=== PATIENT | female | born 1960 | race Caucasian/White ===

== ENCOUNTER 2017-12-27 15:14 | Observation (INO) | payer MEDICAID ==
[~2017-12-27] VITALS: Ht 167.6 cm; Wt 85.0 kg
[~2017-12-27 15:14] MED LIST: ALBU18HF2 PO; ASPI81TA PO; ATOR20TA PO; CARV3.12 PO; CLON-286 PO; DOCU250C86 PO; ISOS40TA14 PO; METH5TAB2 PO; PANT-47 PO; PROM25TA14 PO; QUET-1 PO; TIOT4MIS3 INH
[2017-12-27 15:41] LABS: BASOPHILS % (AUTO) 0.5 % (0-1); EOSINOPHILS # (AUTO) 0.1 X10'3 (0-0.9); EOSINOPHILS % (AUTO) 1.1 % (0-6); HEMATOCRIT 40.5 % (35.0-45.0); LYMPHOCYTES # (AUTO) 2.4 X10'3 (1.1-4.8); LYMPHOCYTES % (AUTO) 30.7 % (21-51); MEAN CORPUSCULAR HEMOGLOBIN 31.4 PG (27.0-31.0); MEAN CORPUSCULAR HGB CONC 34.6 % (33.0-36.5); MEAN CORPUSCULAR VOLUME 90.9 FL (78-98); MEAN PLATELET VOLUME 7.4 FL (7.4-10.4); MONOCYTES # (AUTO) 0.3 X10'3 (0-0.9); MONOCYTES % (AUTO) 4.3 % (2-12); NEUTROPHILS # (AUTO) 4.9 X10'3 (1.8-7.7); NEUTROPHILS % (AUTO) 63.4 % (42-75); PLATELET COUNT 229 X10'3 (140-440); RED BLOOD COUNT 4.46 X10'6 (4.20-5.60); RED CELL DISTRIBUTION WIDTH 13.9 % (11.5-14.5); WHITE BLOOD COUNT 7.8 X10'3 (4.5-11.0)
[2017-12-27 15:42] LABS: INR 0.9 INR; PARTIAL THROMBOPLASTIN TIME 26 SECONDS (22-32); PROTHROMBIN TIME 9.6 SECONDS (9.0-12.0)
[2017-12-27 15:49] LABS: ALANINE AMINOTRANSFERASE 17 U/L (12-78); ALBUMIN 3.8 G/DL (3.4-5.0); ALBUMIN/GLOBULIN RATIO 0.9 (1.1-1.5); ALKALINE PHOSPHATASE 95 IU/L (46-116); ANION GAP 5 (8-16); ASPARTATE AMINO TRANSFERASE 15 U/L (10-37); BILIRUBIN,TOTAL 0.3 MG/DL (0.1-1.0); BLOOD UREA NITROGEN 11 MG/DL (7-18); CHLORIDE 101 MMOL/L (99-107); GLUCOSE 130 MG/DL (70-104); POTASSIUM 3.7 MMOL/L (3.5-5.1); SODIUM 139 MMOL/L (135-145); TOTAL CARBON DIOXIDE 32.7 MMOL/L (24-32); TOTAL PROTEIN 7.9 G/DL (6.4-8.2); eGFR 58 ML/MIN
[2017-12-27] MEDS ORDERED: nitroGLYCERIN 0.4mg SUBLingual tab SL PRN ×3 (18:15→21:35)
[2017-12-27] MEDS ORDERED: aspirin 81mg tab.chew PO ONE (18:15)
[2017-12-27] MEDS ORDERED: ondansetron/PF 4mg/2ml inj IV ONE (18:55)
[2017-12-27] MEDS ORDERED: morphine 4 MG/ML inj SYRINge IV ONE (18:55)
[2017-12-27] MEDS ORDERED: ASPI81TA46 PO (20:22)
[2017-12-27] MEDS ORDERED: HYDR-3972 PO (20:22)
[2017-12-27] MEDS ORDERED: ATOR20TA66 PO (20:22)
[2017-12-27] MEDS ORDERED: ALBU18HF2 PO (20:22)
[2017-12-27] MEDS ORDERED: QUET200T30 PO (20:22)
[2017-12-27] MEDS ORDERED: CLON1TAB4 PO (20:22)
[2017-12-27] MEDS ORDERED: PANT40TA4 PO (20:22)
[2017-12-27] MEDS ORDERED: acetaminophen 325mg tablet PO PRN (20:45)
[2017-12-27] MEDS ORDERED: potassium Cl 20 mEq SR tablet PO PRN ×2 (20:45)
[2017-12-27] MEDS ORDERED: magnesium hydroxide 30ml (MOM) UD suspension PO PRN (20:45)
[2017-12-27] MEDS ORDERED: ondansetron/PF 4mg/2ml inj IV PRN (20:45)
[2017-12-27] MEDS ORDERED: potassium Cl 40MEQ/NS 500ml 500 ML IV PRN ×2 (20:45)
[2017-12-27] MEDS ORDERED: non-formulary drug (Quetiapine Fumarate 1 TAB) PO SCH (21:00)
[2017-12-27] MEDS: ISOSORBIDE DINITRATE 40 MG PO SCH (21:00)
[2017-12-27] MEDS ORDERED: ISOSORBIDE DINITRATE PO SCH (21:00)
[2017-12-27] MEDS: quetiapine 100mg tablet PO SCH (21:28)
[2017-12-27] MEDS: atorvastatin 20mg tablet PO SCH (21:28)
[2017-12-27] MEDS: HYDROcodone/acetaminophen 10/325mg tab PO SCH (21:28)
[2017-12-27] MEDS: clonazePAM 1mg tablet PO SCH (21:28)
[2017-12-27] MEDS ORDERED: regadenoson 0.4mg/5ml syringe IV PRN (21:35)
[2017-12-27] MEDS ORDERED: aminophylline 250mg/10ml inj. IV PRN (21:35)
[2017-12-27] MEDS ORDERED: metoprolol tartrate 1mg/ml inj IV PRN (21:35)
[2017-12-27] MEDS: methadone 5mg tablet PO SCH (21:55)
[2017-12-27] MEDS ORDERED: LORazepam 2 mg/ml vial IV PRN (23:20)
[2017-12-28] VITALS (9 sets, daily range): BP systolic 90–114; BP diastolic 53–64
[2017-12-28 03:15] LABS: BASOPHILS % (AUTO) 0 % (0-1); EOSINOPHILS # (AUTO) 0.1 X10'3 (0-0.9); EOSINOPHILS % (AUTO) 1.6 % (0-6); HEMATOCRIT 37.9 % (35.0-45.0); HEMOGLOBIN 13.1 g/dl (12.0-16.0); LYMPHOCYTES # (AUTO) 2.6 X10'3 (1.1-4.8); MEAN CORPUSCULAR HEMOGLOBIN 31.4 PG (27.0-31.0); MEAN CORPUSCULAR HGB CONC 34.5 % (33.0-36.5); MEAN PLATELET VOLUME 7.2 FL (7.4-10.4); MONOCYTES # (AUTO) 0.5 X10'3 (0-0.9); MONOCYTES % (AUTO) 6.6 % (2-12); NEUTROPHILS # (AUTO) 3.8 X10'3 (1.8-7.7); NEUTROPHILS % (AUTO) 54.8 % (42-75); PLATELET COUNT 203 X10'3 (140-440); RED BLOOD COUNT 4.16 X10'6 (4.20-5.60); RED CELL DISTRIBUTION WIDTH 13.6 % (11.5-14.5); WHITE BLOOD COUNT 6.9 X10'3 (4.5-11.0)
[2017-12-28 03:35] LABS: ALBUMIN 3.4 G/DL (3.4-5.0); ANION GAP 7 (8-16); BLOOD UREA NITROGEN 11 MG/DL (7-18); CALCIUM 8.7 MG/DL (8.5-10.1); CHLORIDE 104 MMOL/L (99-107); GLUCOSE 117 MG/DL (70-104); POTASSIUM 3.8 MMOL/L (3.5-5.1); SODIUM 141 MMOL/L (135-145); TOTAL CARBON DIOXIDE 29.7 MMOL/L (24-32); eGFR 58 ML/MIN
[2017-12-28] MEDS: carVEDilol 3.125mg tablet PO SCH ×2 (07:37→20:22)
[2017-12-28] MEDS: aspirin 81mg tablet.DR PO SCH (07:38)
[2017-12-28] MEDS: methadone 5mg tablet PO SCH ×3 (07:38→20:21)
[2017-12-28] MEDS: clonazePAM 1mg tablet PO SCH ×3 (07:38→20:22)
[2017-12-28] MEDS: pantoprazole 40mg Tablet.DR PO SCH (07:39)
[2017-12-28] MEDS: HYDROcodone/acetaminophen 10/325mg tab PO SCH ×3 (07:39→23:19)
[2017-12-28] MEDS: K and/or MAG REPLACEMENT MC SCH (07:41)
[2017-12-28] MEDS ORDERED: non-formulary drug (Aspirin (Aspirin Ec) 1 TAB) PO SCH (08:00)
[2017-12-28] MEDS ORDERED: regadenoson 0.4mg/5ml syringe IV ONE (08:37)
[2017-12-28] MEDS ORDERED: aminophylline inj. 0 ML IV ONE (08:37)
[2017-12-28] MEDS: budesonide 0.5mg/2ml UD nebule IH SCH ×2 (09:25→20:00)
[2017-12-28] MEDS: atorvastatin 20mg tablet PO SCH (20:20)
[2017-12-28] MEDS: quetiapine 100mg tablet PO SCH (20:21)
[2017-12-28] MEDS: ISOSORBIDE DINITRATE 40 MG PO SCH (21:00)
[2017-12-29] VITALS: BP 97/62
[2017-12-29] MEDS: mag hydrox/Alum hydrox/simeth 30ml oral suspension PO PRN (04:22)
[2017-12-29] MEDS: morphine 4 MG/ML inj SYRINge IV PRN ×2 (04:51→11:47)
[2017-12-29] MEDS ORDERED: normal saline 500ml IV soln 500 ML IV ONE ×2 (05:05→23:35)
[2017-12-29] MEDS ORDERED: morphine 4 MG/ML inj SYRINge IV ONE (05:05)
[2017-12-29] MEDS ORDERED: normal saline 500ml IV soln 1,000 ML IV ONE (05:15)
[2017-12-29 06:06] LABS: BASOPHILS % (AUTO) 0.1 % (0-1); EOSINOPHILS # (AUTO) 0.1 X10'3 (0-0.9); EOSINOPHILS % (AUTO) 1.7 % (0-6); HEMATOCRIT 37.6 % (35.0-45.0); LYMPHOCYTES # (AUTO) 2.7 X10'3 (1.1-4.8); MEAN CORPUSCULAR HEMOGLOBIN 31.4 PG (27.0-31.0); MEAN CORPUSCULAR HGB CONC 34.6 % (33.0-36.5); MEAN CORPUSCULAR VOLUME 90.7 FL (78-98); MEAN PLATELET VOLUME 7.6 FL (7.4-10.4); MONOCYTES # (AUTO) 0.4 X10'3 (0-0.9); MONOCYTES % (AUTO) 4.8 % (2-12); NEUTROPHILS # (AUTO) 5.6 X10'3 (1.8-7.7); NEUTROPHILS % (AUTO) 63.4 % (42-75); PLATELET COUNT 211 X10'3 (140-440); RED BLOOD COUNT 4.15 X10'6 (4.20-5.60); RED CELL DISTRIBUTION WIDTH 13.7 % (11.5-14.5); WHITE BLOOD COUNT 8.9 X10'3 (4.5-11.0)
[2017-12-29 06:30] LABS: ALBUMIN 3.3 G/DL (3.4-5.0); ANION GAP 8 (8-16); BLOOD UREA NITROGEN 11 MG/DL (7-18); BUN/CREATININE RATIO 9.5 (6.6-38.0); CALCIUM 8.9 MG/DL (8.5-10.1); CHLORIDE 103 MMOL/L (99-107); CREATININE 1.16 MG/DL (0.40-0.90); GLUCOSE 124 MG/DL (70-104); POTASSIUM 3.8 MMOL/L (3.5-5.1); SODIUM 142 MMOL/L (135-145); TOTAL CARBON DIOXIDE 31.1 MMOL/L (24-32); eGFR 49 ML/MIN
[2017-12-29 07:00] VITALS: BP 104/56
[2017-12-29 07:56] VITALS: BP 111/66
[2017-12-29] MEDS: K and/or MAG REPLACEMENT MC SCH (08:00)
[2017-12-29] MEDS: methadone 5mg tablet PO SCH ×3 (08:30→20:54)
[2017-12-29] MEDS: carVEDilol 3.125mg tablet PO SCH ×2 (08:31→19:33)
[2017-12-29] MEDS: HYDROcodone/acetaminophen 10/325mg tab PO SCH ×3 (08:31→20:54)
[2017-12-29] MEDS: aspirin 81mg tablet.DR PO SCH (08:32)
[2017-12-29] MEDS: clonazePAM 1mg tablet PO SCH ×3 (08:32→20:54)
[2017-12-29] MEDS: pantoprazole 40mg Tablet.DR PO SCH (08:32)
[2017-12-29] MEDS: budesonide 0.5mg/2ml UD nebule IH SCH ×2 (08:39→19:48)
[2017-12-29] MEDS: ipratropium/albuterol 3ml nebule NEB PRN ×2 (08:39→19:48)
[2017-12-29 11:00] VITALS: BP 95/56
[2017-12-29 18:00] VITALS: BP 101/63
[2017-12-29] MEDS ORDERED: nicotine 21mg patch - 24 hr TD SCH (20:20)
[2017-12-29] MEDS: atorvastatin 20mg tablet PO SCH (20:53)
[2017-12-29] MEDS: quetiapine 100mg tablet PO SCH (20:54)
[2017-12-29] MEDS: ISOSORBIDE DINITRATE 40 MG PO SCH (21:00)
[2017-12-30] VITALS: BP 83/49
[2017-12-30 00:34] VITALS: BP 92/54
[2017-12-30 04:30] VITALS: BP 94/48
[2017-12-30 05:33] LABS: BASOPHILS % (AUTO) 0.1 % (0-1); EOSINOPHILS # (AUTO) 0.1 X10'3 (0-0.9); HEMATOCRIT 35.2 % (35.0-45.0); HEMOGLOBIN 12.3 g/dl (12.0-16.0); LYMPHOCYTES % (AUTO) 40.3 % (21-51); MEAN CORPUSCULAR HEMOGLOBIN 31.4 PG (27.0-31.0); MEAN CORPUSCULAR HGB CONC 34.8 % (33.0-36.5); MEAN CORPUSCULAR VOLUME 90.2 FL (78-98); MEAN PLATELET VOLUME 7.4 FL (7.4-10.4); MONOCYTES # (AUTO) 0.5 X10'3 (0-0.9); MONOCYTES % (AUTO) 6.6 % (2-12); NEUTROPHILS # (AUTO) 3.7 X10'3 (1.8-7.7); PLATELET COUNT 209 X10'3 (140-440); RED CELL DISTRIBUTION WIDTH 13.8 % (11.5-14.5); WHITE BLOOD COUNT 7.4 X10'3 (4.5-11.0)
[2017-12-30 05:48] LABS: ALBUMIN 3.2 G/DL (3.4-5.0); ANION GAP 7 (8-16); BLOOD UREA NITROGEN 14 MG/DL (7-18); BUN/CREATININE RATIO 12.8 (6.6-38.0); CHLORIDE 102 MMOL/L (99-107); CREATININE 1.09 MG/DL (0.40-0.90); GLUCOSE 98 MG/DL (70-104); POTASSIUM 4.1 MMOL/L (3.5-5.1); SODIUM 139 MMOL/L (135-145); TOTAL CARBON DIOXIDE 29.8 MMOL/L (24-32); eGFR 52 ML/MIN
[2017-12-30 08:00] VITALS: BP 105/68
[2017-12-30] MEDS: carVEDilol 3.125mg tablet PO SCH (08:00)
[2017-12-30] MEDS: K and/or MAG REPLACEMENT MC SCH (08:00)
[2017-12-30] MEDS: methadone 5mg tablet PO SCH ×2 (08:27→12:37)
[2017-12-30] MEDS: aspirin 81mg tablet.DR PO SCH (08:27)
[2017-12-30] MEDS: clonazePAM 1mg tablet PO SCH ×2 (08:27→12:36)
[2017-12-30] MEDS: pantoprazole 40mg Tablet.DR PO SCH (08:27)
[2017-12-30] MEDS: HYDROcodone/acetaminophen 10/325mg tab PO SCH ×3 (08:28→15:14)
[2017-12-30] MEDS: budesonide 0.5mg/2ml UD nebule IH SCH (08:39)
[2017-12-30] MEDS: ipratropium/albuterol 3ml nebule NEB PRN (08:39)
[2017-12-30 10:00] VITALS: BP 132/74
[2017-12-30] MEDS: mag hydrox/Alum hydrox/simeth 30ml oral suspension PO PRN (10:09)
[2017-12-30] MEDS ORDERED: NITR0.4T51 SL (15:51)
[2017-12-30] MEDS ORDERED: NICO-687 TD (15:51)
[2017-12-30] MEDS ORDERED: NAPR-56 PO (15:54)
== END 2017-12-30 16:45 | disposition home or self-care (01) ==
LOC: ER 15:14 → ED HOLD 20:43 → EDBEDREQ 12-28 17:55 → SUR 3N 12-28 19:05
PROVIDERS: ADMIT Family Medicine; ATTEND Emergency Medicine
DX: R07.89 Other chest pain (principal); I25.10 Atherosclerotic heart disease of native coronary artery without angina pectoris; E78.5 Hyperlipidemia, unspecified; E78.00 Pure hypercholesterolemia, unspecified; J44.9 Chronic obstructive pulmonary disease, unspecified; K21.9 Gastro-esophageal reflux disease without esophagitis; I50.9 Heart failure, unspecified; F41.9 Anxiety disorder, unspecified; F32.9 Major depressive disorder, single episode, unspecified; F17.210 Nicotine dependence, cigarettes, uncomplicated; I25.2 Old myocardial infarction; M54.9 Dorsalgia, unspecified; G89.29 Other chronic pain; Z95.1 Presence of aortocoronary bypass graft; Z90.710 Acquired absence of both cervix and uterus
CPT/HCPCS: 36415; 71045; 78452; 80048; 80053; 84484; 85025; 85610; 85730; 87070; 93005; 93017; 93306; 94640; 94760; 96361; 96374; 96375; 96376; 99285; A9500; G0378; J2060; J2270; J2405; J2785; J7030; J7626; J0280

== ENCOUNTER 2018-02-27 04:58 | Day surgery (SDC) | payer MEDICAID ==
[2018-02-23 10:00] LABS: BASOPHILS # (AUTO) 0.1 X10'3 (0-0.2); BASOPHILS % (AUTO) 1.1 % (0-1); EOSINOPHILS # (AUTO) 0.1 X10'3 (0-0.9); EOSINOPHILS % (AUTO) 1.5 % (0-6); HEMATOCRIT 40.6 % (35.0-45.0); HEMOGLOBIN 14.1 g/dl (12.0-16.0); LYMPHOCYTES # (AUTO) 1.9 X10'3 (1.1-4.8); LYMPHOCYTES % (AUTO) 25.1 % (21-51); MEAN CORPUSCULAR HEMOGLOBIN 31.6 PG (27.0-31.0); MEAN CORPUSCULAR HGB CONC 34.8 % (33.0-36.5); MEAN CORPUSCULAR VOLUME 90.8 FL (78-98); MEAN PLATELET VOLUME 6.9 FL (7.4-10.4); MONOCYTES # (AUTO) 0.4 X10'3 (0-0.9); MONOCYTES % (AUTO) 5.8 % (2-12); NEUTROPHILS # (AUTO) 5.2 X10'3 (1.8-7.7); NEUTROPHILS % (AUTO) 66.5 % (42-75); PLATELET COUNT 225 X10'3 (140-440); RED BLOOD COUNT 4.47 X10'6 (4.20-5.60); RED CELL DISTRIBUTION WIDTH 13.8 % (11.5-14.5); WHITE BLOOD COUNT 7.8 X10'3 (4.5-11.0)
[2018-02-23 10:11] LABS: INR 0.9 INR; PARTIAL THROMBOPLASTIN TIME 26 SECONDS (22-32); PROTHROMBIN TIME 9.5 SECONDS (9.0-12.0)
[2018-02-23 10:15] LABS: ALANINE AMINOTRANSFERASE 15 U/L (12-78); ALBUMIN 3.7 G/DL (3.4-5.0); ALBUMIN/GLOBULIN RATIO 0.9 (1.1-1.5); ALKALINE PHOSPHATASE 97 IU/L (46-116); ANION GAP 7 (8-16); ASPARTATE AMINO TRANSFERASE 14 U/L (10-37); BILIRUBIN,TOTAL 0.4 MG/DL (0.1-1.0); BLOOD UREA NITROGEN 11 MG/DL (7-18); BUN/CREATININE RATIO 10.4 (6.6-38.0); CALCIUM 8.8 MG/DL (8.5-10.1); CHLORIDE 100 MMOL/L (99-107); CHOL/HDL RATIO 5.4 (0.00-4.99); CHOLESTEROL 199 MG/DL (0-200); CREATININE 1.06 MG/DL (0.40-0.90); GLUCOSE 103 MG/DL (70-104); HDL CHOLESTEROL 37 MG/DL (35-60); LDL CHOLESTEROL 131 MG/DL (50-100); POTASSIUM 3.9 MMOL/L (3.5-5.1); SODIUM 139 MMOL/L (135-145); TOTAL CARBON DIOXIDE 32.5 MMOL/L (24-32); TRIGLYCERIDES 212 MG/DL (20-135); eGFR 54 ML/MIN
[2018-02-27] VITALS (11 sets, daily range): BP systolic 90–112; BP diastolic 53–77
[~2018-02-27] VITALS: Ht 167.6 cm; Wt 84.3 kg
[~2018-02-27 04:58] MED LIST changes: -ASPI81TA PO; +ASPI81TA46 PO; -CLON-286 PO; +CLON1TAB12 PO; -DOCU250C86 PO; +HYDR-3972 PO; +NICO-687 TD; +NITR0.4T51 SL; -PANT-47 PO; +PANT40TA4 PO; -QUET-1 PO; +QUET200T30 PO
[2018-02-27] MEDS ORDERED: diphenhydrAMINE 25mg capsule PO ONE (05:20)
[2018-02-27] MEDS ORDERED: LORazepam 0.5 MG tablet PO ONE (05:20)
[2018-02-27] MEDS ORDERED: normal saline 1000ml 1,000 ML IV ONE (05:20)
[2018-02-27] MEDS ORDERED: LIDOcaine 1% 30ml preserv. free vial ONE (06:12)
[2018-02-27] MEDS ORDERED: iohexol 350MG/ML 100ml bottle IV ONE ×2 (06:13→06:43)
[2018-02-27] MEDS ORDERED: QUET-1 PO (06:14)
[2018-02-27] MEDS ORDERED: RANO500T3 PO (06:15)
[2018-02-27] MEDS ORDERED: NITR0.4T51 SL (06:15)
[2018-02-27] MEDS ORDERED: ADV50100 IH (06:18)
[2018-02-27] MEDS ORDERED: TIOT18CA3 INH (06:18)
[2018-02-27] MEDS ORDERED: BUDE10.2 INH (06:18)
[2018-02-27] MEDS ORDERED: midazolam 2 mg/2 ml injection ONE (06:23)
[2018-02-27] MEDS ORDERED: proCHLORperazine 10 MG/2 ml inj ONE (06:23)
[2018-02-27] MEDS ORDERED: fentaNYL/PF 50MCG/1 ML 2ML syringe ONE (06:24)
[2018-02-27] MEDS ORDERED: acetaminophen 325mg tablet PO PRN (08:35)
[2018-02-27] MEDS ORDERED: OXAZEpam 15mg capsule PO PRN (08:35)
[2018-02-27] MEDS ORDERED: HYDROcodone/acetaminophen 5mg/325mg tablet PO PRN (08:35)
[2018-02-27] MEDS ORDERED: ondansetron/PF 4mg/2ml inj IV PRN (08:35)
[2018-02-27] MEDS ORDERED: nitroGLYCERIN 0.4mg SUBLingual tab SL PRN (08:35)
[2018-02-27] MEDS ORDERED: proCHLORperazine 10 MG/2 ml inj IV PRN (08:35)
[2018-02-27] MEDS ORDERED: HYDROcodone/acetaminophen 10/325mg tab PO PRN (08:35)
== END 2018-02-27 11:05 | disposition home or self-care (01) ==
LOC: SSTAY O 04:58
PROVIDERS: ATTEND Internal Medicine Interventional Cardiology
DX: I25.718 Atherosclerosis of autologous vein coronary artery bypass graft(s) with other forms of angina pectoris (principal); E78.5 Hyperlipidemia, unspecified; B19.20 Unspecified viral hepatitis C without hepatic coma; I11.0 Hypertensive heart disease with heart failure; I50.9 Heart failure, unspecified; G89.29 Other chronic pain; F17.210 Nicotine dependence, cigarettes, uncomplicated; J44.9 Chronic obstructive pulmonary disease, unspecified; F41.8 Other specified anxiety disorders; M19.90 Unspecified osteoarthritis, unspecified site; Z88.1 Allergy status to other antibiotic agents; Z91.012 Allergy to eggs; Z88.0 Allergy status to penicillin; Z88.6 Allergy status to analgesic agent; Z87.11 Personal history of peptic ulcer disease; Z90.89 Acquired absence of other organs; Z95.1 Presence of aortocoronary bypass graft; Z90.710 Acquired absence of both cervix and uterus; Z86.14 Personal history of Methicillin resistant Staphylococcus aureus infection; Z86.74 Personal history of sudden cardiac arrest; Z79.82 Long term (current) use of aspirin; Z79.891 Long term (current) use of opiate analgesic; Z88.8 Allergy status to other drugs, medicaments and biological substances; Z98.890 Other specified postprocedural states; Z79.899 Other long term (current) drug therapy
CPT/HCPCS: 36415; 80053; 80061; 85025; 85610; 85730; 93005; 93459; 99152; 99153; A6257; C1769; J0780; J1644; J2250; J3010; J3490; J7030; Q0163; Q9967; A4620

== ENCOUNTER 2018-11-18 18:01 | Emergency (ER) | payer MEDICAID ==
[~2018-11-18] VITALS: Ht 167.6 cm; Wt 84.0 kg
[~2018-11-18 18:01] MED LIST changes: +ADV50100 IH; +BUDE10.2 INH; -CARV3.12 PO; -NICO-687 TD; +QUET-1 PO; -QUET200T30 PO; +RANO500T3 PO; +TIOT18CA3 INH; -TIOT4MIS3 INH
[2018-11-18] MEDS ORDERED: SULF1TAB49 PO (20:00)
[2018-11-18] MEDS ORDERED: CEPH-572 PO (20:00)
[2018-11-18 20:04] VITALS: BP 128/72
[2018-11-18] MEDS ORDERED: PRED20TA PO (20:07)
== END 2018-11-18 20:14 | disposition home or self-care (01) ==
LOC: ER 18:01
DX: L60.1 Onycholysis (principal); G43.909 Migraine, unspecified, not intractable, without status migrainosus; I25.10 Atherosclerotic heart disease of native coronary artery without angina pectoris; I50.9 Heart failure, unspecified; E78.00 Pure hypercholesterolemia, unspecified; I25.2 Old myocardial infarction; J44.9 Chronic obstructive pulmonary disease, unspecified; G89.29 Other chronic pain; Z95.1 Presence of aortocoronary bypass graft; Z98.890 Other specified postprocedural states; Z88.0 Allergy status to penicillin; Z56.0 Unemployment, unspecified; Z88.6 Allergy status to analgesic agent; Z88.1 Allergy status to other antibiotic agents; Z91.012 Allergy to eggs; Z79.82 Long term (current) use of aspirin; Z79.899 Other long term (current) drug therapy
CPT/HCPCS: 99284

== ENCOUNTER 2019-07-24 16:38 | Inpatient (IN) | payer MEDICAID ==
[~2019-07-24] VITALS: Ht 167.6 cm; Wt 84.0 kg
[~2019-07-24 16:38] MED LIST changes: +ASPI81TA44 PO; -ASPI81TA46 PO
[2019-07-24] MEDS ORDERED: nitroGLYCERIN 0.4mg SUBLingual tab SL PRN ×3 (17:10→20:15)
[2019-07-24] MEDS ORDERED: aspirin 81mg tab.chew PO ONE (17:10)
[2019-07-24 17:29] LABS: BASOPHILS # (AUTO) 0.1 X10'3 (0-0.2); BASOPHILS % (AUTO) 0.6 % (0-1); EOSINOPHILS # (AUTO) 0.1 X10'3 (0-0.9); EOSINOPHILS % (AUTO) 0.9 % (0-6); LYMPHOCYTES % (AUTO) 33.2 % (21-51); MEAN CORPUSCULAR HEMOGLOBIN 31.4 PG (27.0-31.0); MEAN CORPUSCULAR HGB CONC 34.9 g/dL (33.0-36.5); MEAN CORPUSCULAR VOLUME 89.8 FL (78-98); MEAN PLATELET VOLUME 6.6 FL (7.4-10.4); MONOCYTES # (AUTO) 0.6 X10'3 (0-0.9); MONOCYTES % (AUTO) 6.3 % (2-12); NEUTROPHILS # (AUTO) 5.3 X10'3 (1.8-7.7); PLATELET COUNT 265 X10'3 (140-440); RED BLOOD COUNT 4.45 X10'6 (4.20-5.60); WHITE BLOOD COUNT 9.1 X10'3 (4.5-11.0)
[2019-07-24] MEDS ORDERED: acetaminophen 325mg tablet PO ONE (17:35)
[2019-07-24 17:45] LABS: ALANINE AMINOTRANSFERASE 15 U/L (12-78); ALBUMIN 3.9 G/DL (3.4-5.0); ALBUMIN/GLOBULIN RATIO 0.9 (1.1-1.5); ALKALINE PHOSPHATASE 91 IU/L (46-116); ANION GAP 6 (8-16); ASPARTATE AMINO TRANSFERASE 13 U/L (10-37); BILIRUBIN,TOTAL 0.3 MG/DL (0.1-1.0); BLOOD UREA NITROGEN 11 MG/DL (7-18); BUN/CREATININE RATIO 11.1 (6.6-38.0); CALCIUM 8.7 MG/DL (8.5-10.1); CHLORIDE 100 MMOL/L (99-107); CREATININE 0.99 MG/DL (0.40-0.90); GLUCOSE 90 MG/DL (70-104); POTASSIUM 3.7 MMOL/L (3.5-5.1); SODIUM 137 MMOL/L (135-145); TOTAL CARBON DIOXIDE 30.7 MMOL/L (24-32); TOTAL PROTEIN 8.4 G/DL (6.4-8.2); eGFR 58 ML/MIN
[2019-07-24] MEDS ORDERED: AMIT25TA9 PO (18:53)
[2019-07-24] MEDS ORDERED: PRAM0.258 PO (18:53)
[2019-07-24] MEDS ORDERED: TIOT4MIS3 INH (18:53)
[2019-07-24] MEDS ORDERED: MORP30TA6 PO (18:53)
[2019-07-24] MEDS ORDERED: morphine 4 MG/ML inj SYRINge IV ONE (19:05)
--- NOTE | 2019-07-24 19:15 | NUR ---
Olga GOVEA UPDATED THAT PT WITH INCREASING PAIN TO HER LEFT BACK AND LEFT CHEST THAT RADIATES TO HER L SHOUDER. REPORTS THE NITRO SHE TOOK EARLIER DID NOT HELP HER PAIN. MED REC COMPLETED AND PT NOW AWAITING HOSPITALIST. OK FOR PT TO EAT PER Olga GOVEA. PT GIVEN SANDWICH, CRACKERS, COFFEE, JUICE AND JELLO. PT IS POLITE AND COOPERATIVE. REPORTS SHE HAS MANY MEDS THAT SHE TAKES AT NIGHT AND SHE HAS NOT HAD THEM. Aura GOVEA UPDATED AND REPROTS HE WILL DEFER HOME MEDS TO HOSPITALIST. HE ORDERED MSIV.
[2019-07-24] MEDS ORDERED: ondansetron/PF 4mg/2ml inj IV PRN (20:10)
[2019-07-24] MEDS ORDERED: HYDROcodone/acetaminophen 10/325mg tab PO PRN (20:10)
[2019-07-24] MEDS ORDERED: morphine 2 MG/ML inj. syringe IV PRN (20:10)
[2019-07-24] MEDS ORDERED: HYDROcodone/acetaminophen 5mg/325mg tablet PO PRN (20:10)
[2019-07-24] MEDS ORDERED: acetaminophen 325mg tablet PO PRN (20:10)
[2019-07-24] MEDS ORDERED: mag hydrox/Alum hydrox/simeth 30ml oral suspension PO PRN (20:10)
[2019-07-24] MEDS ORDERED: magnesium hydroxide 30ml (MOM) UD suspension PO PRN (20:10)
[2019-07-24 20:34] LABS: HEMOGLOBIN A1C 5.9 % (4.5-6.2)
[2019-07-24] MEDS ORDERED: albuterol 2.5 MG/3 ML nebule NEB PRN (20:40)
[2019-07-24] MEDS: HYDROcodone/acetaminophen 10/325mg tab PO SCH (20:58)
[2019-07-24] MEDS ORDERED: pramipexole 0.25mg tablet PO SCH (21:00)
[2019-07-24] MEDS ORDERED: quetiapine 100mg tablet PO SCH (21:00)
[2019-07-24] MEDS ORDERED: clonazePAM 1mg tablet PO ONE (21:45)
[2019-07-24] MEDS ORDERED: amitriptyline 50mg tablet PO SCH (21:47)
[2019-07-24 22:10] VITALS: BP 95/60
--- NOTE | 2019-07-24 22:10 | NUR ---
PATIENT ADMITTED TO ROOM 354A FROM ER FOR CHEST PAIN. PLACED COMFORTABLE IN BED. VITAL SIGNS TAKEN AND RECORDED.
[2019-07-24] MEDS ORDERED: normal saline 1000ml 1,000 ML IV SCH (22:40)
[2019-07-24] MEDS: morphine 2 MG/ML inj. syringe IV PRN (23:11)
[2019-07-25] VITALS (13 sets, daily range): BP systolic 91–116; BP diastolic 53–74
[2019-07-25] MEDS ORDERED: regadenoson 0.4mg/5ml syringe IV PRN (00:30)
[2019-07-25] MEDS ORDERED: aminophylline 250mg/10ml inj. IV PRN (00:30)
[2019-07-25] MEDS ORDERED: metoprolol tartrate 1mg/ml inj IV PRN (00:30)
[2019-07-25] MEDS ORDERED: nitroGLYCERIN 0.4mg SUBLingual tab SL PRN (00:30)
[2019-07-25] MEDS ORDERED: nicotine 21mg patch - 24 hr TD SCH (01:00)
[2019-07-25] MEDS: morphine 2 MG/ML inj. syringe IV PRN ×2 (04:09→08:20)
[2019-07-25 06:06] LABS: CHOLESTEROL 175 MG/DL (0-200); HDL CHOLESTEROL 35 MG/DL (35-60); LDL CHOLESTEROL 126 MG/DL (50-100); TRIGLYCERIDES 145 MG/DL (20-135)
--- NOTE | 2019-07-25 06:30 | NUR ---
Problems reprioritized. Patient report given, questions answered & plan of care reviewed with AVA HARMON.
--- NOTE | 2019-07-25 07:00 | NUR ---
Patient in room [facility] 354. I have received report from Eber HARMON and had the opportunity to ask questions and assume patient care.
[2019-07-25] MEDS: HYDROcodone/acetaminophen 10/325mg tab PO SCH ×2 (07:44→12:31)
[2019-07-25] MEDS: clonazePAM 1mg tablet PO SCH ×2 (07:44→08:19)
[2019-07-25] MEDS: proMETHazine 25mg tablet PO SCH ×2 (07:44→08:00)
[2019-07-25] MEDS ORDERED: morphine ER 30mg tablet PO SCH (08:00)
[2019-07-25] MEDS ORDERED: (Tiotropium Br/Olodaterol HCl (Stiolto Respimat Inhal Spray) PO SCH (08:00)
[2019-07-25] MEDS ORDERED: atorvastatin 20mg tablet PO SCH (08:00)
[2019-07-25] MEDS ORDERED: aspirin 81mg tablet.DR PO SCH ×2 (08:00)
[2019-07-25] MEDS ORDERED: budesonide 0.5mg/2ml UD nebule IH SCH (08:00)
--- NOTE | 2019-07-25 13:32 | NUR ---
Patient discharged with all belongings. Discharge paperwork gone over with pt and pt had the opportunity to ask questions. Pt has family to take pt home.
== END 2019-07-25 13:27 | disposition home or self-care (01) | DRG 198 ==
LOC: ER 16:38 → ED HOLD 20:08 → EDBEDREQ 21:39 → SUR 3N 22:10 → OBSVTOIN 07-25 08:50
PROVIDERS: ADMIT Internal Medicine; ATTEND Family Medicine
PROC: 4A02XM4 Measurement of Cardiac Total Activity, External Approach (ICD-10-PCS; principal; 2019-07-25)
PROC: 3E033HZ Introduction of Radioactive Substance into Peripheral Vein, Percutaneous Approach (ICD-10-PCS; 2019-07-25)
DX: R07.89 Other chest pain (principal); I25.10 Atherosclerotic heart disease of native coronary artery without angina pectoris; J96.11 Chronic respiratory failure with hypoxia; I50.9 Heart failure, unspecified; E78.00 Pure hypercholesterolemia, unspecified; E78.5 Hyperlipidemia, unspecified; F41.9 Anxiety disorder, unspecified; G89.4 Chronic pain syndrome; J44.9 Chronic obstructive pulmonary disease, unspecified; F32.9 Major depressive disorder, single episode, unspecified; G43.909 Migraine, unspecified, not intractable, without status migrainosus; M54.9 Dorsalgia, unspecified; Z88.0 Allergy status to penicillin; Z88.1 Allergy status to other antibiotic agents; Z88.8 Allergy status to other drugs, medicaments and biological substances; I25.2 Old myocardial infarction; Z80.3 Family history of malignant neoplasm of breast; Z87.891 Personal history of nicotine dependence; Z90.710 Acquired absence of both cervix and uterus; Z95.1 Presence of aortocoronary bypass graft; Z90.49 Acquired absence of other specified parts of digestive tract; Z82.0 Family history of epilepsy and other diseases of the nervous system; Z80.8 Family history of malignant neoplasm of other organs or systems; Z80.0 Family history of malignant neoplasm of digestive organs; Z56.0 Unemployment, unspecified
CPT/HCPCS: 36415; 71045; 78452; 80053; 80061; 83036; 83880; 84484; 85025; 85610; 87081; 93005; 93017; 94640; 94760; 96374; 99285; A9500; G0378; J0280; J2270; J2405; J2785; J7030; J7626

== ENCOUNTER 2020-02-07 21:21 | Emergency (ER) | payer MEDICAID ==
[~2020-02-07] VITALS: Ht 167.6 cm; Wt 90.0 kg
[~2020-02-07 21:21] MED LIST changes: +AMIT25TA9 PO; -BUDE10.2 INH; -METH5TAB2 PO; +MORP30TA6 PO; +PRAM0.258 PO; -RANO500T3 PO; -TIOT18CA3 INH; +TIOT4MIS3 INH
[2020-02-07 22:23] LABS: BASOPHILS % (AUTO) 0.2 % (0-1); EOSINOPHILS # (AUTO) 0.1 X10'3 (0-0.9); HEMATOCRIT 35.7 % (35.0-45.0); HEMOGLOBIN 12.2 g/dl (12.0-16.0); LYMPHOCYTES # (AUTO) 2.3 X10'3 (1.1-4.8); LYMPHOCYTES % (AUTO) 41.2 % (21-51); MEAN CORPUSCULAR HEMOGLOBIN 31.3 PG (27.0-31.0); MEAN CORPUSCULAR HGB CONC 34.2 g/dL (33.0-36.5); MEAN CORPUSCULAR VOLUME 91.6 FL (78-98); MEAN PLATELET VOLUME 6.7 FL (7.4-10.4); MONOCYTES # (AUTO) 0.5 X10'3 (0-0.9); MONOCYTES % (AUTO) 8.7 % (2-12); NEUTROPHILS # (AUTO) 2.6 X10'3 (1.8-7.7); NEUTROPHILS % (AUTO) 47.9 % (42-75); PLATELET COUNT 259 X10'3 (140-440); RED CELL DISTRIBUTION WIDTH 13.8 % (11.5-14.5); WHITE BLOOD COUNT 5.5 X10'3 (4.5-11.0)
[2020-02-07 22:27] LABS: ALANINE AMINOTRANSFERASE 6 U/L (12-78); ALBUMIN 3.3 G/DL (3.4-5.0); ALBUMIN/GLOBULIN RATIO 0.9 (1.1-1.5); ALKALINE PHOSPHATASE 77 IU/L (46-116); ANION GAP 1 (8-16); ASPARTATE AMINO TRANSFERASE 15 U/L (10-37); BILIRUBIN,TOTAL 0.4 MG/DL (0.1-1.0); CALCIUM 8.4 MG/DL (8.5-10.1); CHLORIDE 102 MMOL/L (99-107); CREATININE 1.09 MG/DL (0.40-0.90); GLUCOSE 110 MG/DL (70-104); POTASSIUM 3.6 MMOL/L (3.5-5.1); SODIUM 138 MMOL/L (135-145); TOTAL CARBON DIOXIDE 35.2 MMOL/L (24-32); TOTAL PROTEIN 6.9 G/DL (6.4-8.2); eGFR 52 ML/MIN
[2020-02-07] MEDS ORDERED: dexamethasone sod phosphate 10mg/ml inj IM STA (22:35)
[2020-02-07] MEDS ORDERED: ipratropium/albuterol 3ml nebule NEB ONE (22:35)
[2020-02-07 22:46] LABS: BLOOD UREA NITROGEN 6 MG/DL (7-18); BUN/CREATININE RATIO 5.5 (6.6-38.0)
[2020-02-07] MEDS ORDERED: iohexol 350MG/ML 100ml bottle IV ONE (23:41)
[2020-02-07] MEDS ORDERED: ketorolac tromethamine 15mg/ml inj. IV ONE (23:55)
[2020-02-08] MEDS ORDERED: DOXY100C43 PO (00:50)
[2020-02-08] MEDS ORDERED: PRED20TA PO (00:50)
[2020-02-08 01:04] VITALS: BP 155/78
== END 2020-02-08 01:06 | disposition home or self-care (01) ==
LOC: ER 21:22
DX: J20.9 Acute bronchitis, unspecified (principal); I25.10 Atherosclerotic heart disease of native coronary artery without angina pectoris; I50.9 Heart failure, unspecified; E78.00 Pure hypercholesterolemia, unspecified; I25.2 Old myocardial infarction; G89.29 Other chronic pain; F41.9 Anxiety disorder, unspecified; F32.9 Major depressive disorder, single episode, unspecified; F17.210 Nicotine dependence, cigarettes, uncomplicated; Z95.1 Presence of aortocoronary bypass graft; Z98.890 Other specified postprocedural states; Z56.0 Unemployment, unspecified; Z88.0 Allergy status to penicillin; Z91.012 Allergy to eggs; Z88.6 Allergy status to analgesic agent; Z88.1 Allergy status to other antibiotic agents; Z88.5 Allergy status to narcotic agent; Z79.82 Long term (current) use of aspirin; Z79.899 Other long term (current) drug therapy
CPT/HCPCS: 36415; 71045; 71275; 80053; 84484; 85025; 85379; 93005; 94640; 96372; 96374; 99285; J1100; J1885; Q9967; 94760

== ENCOUNTER 2020-04-02 12:07 | Day surgery (SDC) | payer MEDICAID ==
[~2020-04-02] VITALS: Ht 167.6 cm; Wt 89.4 kg
[2020-04-02] VITALS (9 sets, daily range): BP systolic 92–124; BP diastolic 49–72
[2020-04-02] MEDS ORDERED: diphenhydrAMINE 25mg capsule PO PRN (12:35)
[2020-04-02] MEDS ORDERED: LORazepam 0.5 MG tablet PO PRN (12:35)
[2020-04-02] MEDS ORDERED: normal saline 1,000 ML IV SCH (12:35)
[2020-04-02] MEDS ORDERED: heparin 1,000unit/ml 10ml vial 10 ML ONE (13:20)
[2020-04-02] MEDS ORDERED: midazolam 2 mg/2 ml injection ONE ×4 (13:20→14:27)
[2020-04-02] MEDS ORDERED: iohexol 350MG/ML 100ml bottle IV ONE (13:20)
[2020-04-02] MEDS ORDERED: verapamil 2.5 mg/ml inj IV ONE (13:20)
[2020-04-02] MEDS ORDERED: fentaNYL/PF 50MCG/1 ML 2ML syringe ONE ×3 (13:20→14:27)
[2020-04-02] MEDS ORDERED: nitroGLYCERIN-Tridil 50MG/D5W 250 ML IV ONE (13:21)
[2020-04-02] MEDS ORDERED: ISOS30TA9 PO (13:24)
[2020-04-02] MEDS ORDERED: PANT-47 PO (13:29)
[2020-04-02] MEDS ORDERED: PHE12.5R RC (13:29)
[2020-04-02] MEDS ORDERED: TIOT18CA3 INH (13:29)
[2020-04-02] MEDS ORDERED: PRAM1.5T4 PO (13:31)
[2020-04-02] MEDS ORDERED: ERGO400C PO (13:31)
[2020-04-02] MEDS ORDERED: PSYL0.4C2 PO (13:33)
[2020-04-02 13:39] LABS: BASOPHILS % (AUTO) 0.7 % (0-1); EOSINOPHILS # (AUTO) 0.1 X10'3 (0-0.9); EOSINOPHILS % (AUTO) 1.3 % (0-6); HEMOGLOBIN 13.9 g/dl (12.0-16.0); LYMPHOCYTES # (AUTO) 2.3 X10'3 (1.1-4.8); LYMPHOCYTES % (AUTO) 33.4 % (21-51); MEAN CORPUSCULAR HEMOGLOBIN 30.7 PG (27.0-31.0); MEAN CORPUSCULAR HGB CONC 33.8 g/dL (33.0-36.5); MEAN CORPUSCULAR VOLUME 90.9 FL (78-98); MEAN PLATELET VOLUME 6.9 FL (7.4-10.4); MONOCYTES # (AUTO) 0.4 X10'3 (0-0.9); MONOCYTES % (AUTO) 5.7 % (2-12); NEUTROPHILS # (AUTO) 4.1 X10'3 (1.8-7.7); NEUTROPHILS % (AUTO) 58.9 % (42-75); PLATELET COUNT 249 X10'3 (140-440); RED BLOOD COUNT 4.51 X10'6 (4.20-5.60); RED CELL DISTRIBUTION WIDTH 14.3 % (11.5-14.5)
[2020-04-02] MEDS ORDERED: LIDOcaine 1% (10mg/ml)w/preservative injection 20ml MDV ONE (13:39)
[2020-04-02] MEDS ORDERED: LIDOcaine/PRILOcaine 5gm cream TP ONE (13:40)
[2020-04-02 13:47] LABS: ALBUMIN 4.1 G/DL (3.4-5.0); ANION GAP 5 (8-16); BLOOD UREA NITROGEN 7 MG/DL (7-18); BUN/CREATININE RATIO 6.7 (6.6-38.0); CALCIUM 9.5 MG/DL (8.5-10.1); CHLORIDE 101 MMOL/L (99-107); CREATININE 1.04 MG/DL (0.40-0.90); GLUCOSE 91 MG/DL (70-104); POTASSIUM 4.1 MMOL/L (3.5-5.1); SODIUM 139 MMOL/L (135-145); TOTAL CARBON DIOXIDE 33.3 MMOL/L (24-32); eGFR 55 ML/MIN
[2020-04-02] MEDS ORDERED: proCHLORperazine 10 MG/2 ml inj ONE (14:10)
[2020-04-02] MEDS ORDERED: diphenhydrAMINE 50 mg/ml inj ONE (14:16)
[2020-04-02] MEDS ORDERED: acetaminophen 325mg tablet PO PRN (15:45)
[2020-04-02] MEDS ORDERED: nitroGLYCERIN 0.4mg SUBLingual tab SL PRN (15:45)
[2020-04-02] MEDS ORDERED: ondansetron/PF 4mg/2ml inj IV PRN (15:45)
[2020-04-02] MEDS ORDERED: HYDROcodone/acetaminophen 10/325mg tab PO PRN (15:45)
[2020-04-02] MEDS ORDERED: OXAZEpam 15mg capsule PO PRN (15:45)
[2020-04-02] MEDS ORDERED: proCHLORperazine 10 MG/2 ml inj IV PRN (15:45)
[2020-04-02] MEDS ORDERED: HYDROcodone/acetaminophen 5mg/325mg tablet PO PRN (15:45)
== END 2020-04-02 18:00 | disposition home or self-care (01) ==
LOC: SSTAY O 12:07
PROVIDERS: ATTEND Internal Medicine Interventional Cardiology
DX: R07.89 Other chest pain (principal); I25.118 Atherosclerotic heart disease of native coronary artery with other forms of angina pectoris; J44.9 Chronic obstructive pulmonary disease, unspecified; I10 Essential (primary) hypertension; I48.91 Unspecified atrial fibrillation; G89.29 Other chronic pain; E78.5 Hyperlipidemia, unspecified; F41.9 Anxiety disorder, unspecified; F17.210 Nicotine dependence, cigarettes, uncomplicated; Z95.1 Presence of aortocoronary bypass graft; Z86.19 Personal history of other infectious and parasitic diseases; Z79.82 Long term (current) use of aspirin; Z79.899 Other long term (current) drug therapy; Z88.1 Allergy status to other antibiotic agents; Z88.8 Allergy status to other drugs, medicaments and biological substances
CPT/HCPCS: 36415; 80048; 85025; 85610; 93005; 93459; 99152; 99153; C1760; C1769; C1894; J0780; J1200; J1644; J2001; J2250; J3010; J7030; Q0163; Q9967; A4620; A5120; A6258; J3490

== ENCOUNTER 2020-08-01 12:30 | Emergency (ER) | payer MEDICAID ==
[~2020-08-01] VITALS: Ht 167.6 cm; Wt 90.9 kg
[~2020-08-01 12:30] MED LIST changes: -AMIT25TA9 PO; +ERGO400C PO; +ISOS30TA9 PO; -ISOS40TA14 PO; +PANT-47 PO; -PANT40TA4 PO; +PHE12.5R RC; -PRAM0.258 PO; +PRAM1.5T4 PO; -PROM25TA14 PO; +PSYL0.4C2 PO; +TIOT18CA3 INH; -TIOT4MIS3 INH
--- NOTE | 2020-08-01 13:13 | NUR ---
PATIENT FEELS LIKE SHE DID WHEN SHE WAS ADMITTED FOR HER CABG
[2020-08-01] MEDS ORDERED: ondansetron 4mg rapidly disintigrating tab PO ONE (13:55)
[2020-08-01 14:22] LABS: BASOPHILS % (AUTO) 0.3 % (0-1); EOSINOPHILS # (AUTO) 0.1 X10'3 (0-0.9); EOSINOPHILS % (AUTO) 1.1 % (0-6); HEMATOCRIT 36.9 % (35.0-45.0); HEMOGLOBIN 12.7 g/dl (12.0-16.0); LYMPHOCYTES # (AUTO) 1.4 X10'3 (1.1-4.8); MEAN CORPUSCULAR HEMOGLOBIN 31.3 PG (27.0-31.0); MEAN CORPUSCULAR HGB CONC 34.3 g/dL (33.0-36.5); MEAN CORPUSCULAR VOLUME 91.4 FL (78-98); MEAN PLATELET VOLUME 6.8 FL (7.4-10.4); MONOCYTES # (AUTO) 0.5 X10'3 (0-0.9); MONOCYTES % (AUTO) 7.5 % (2-12); NEUTROPHILS % (AUTO) 71.1 % (42-75); PLATELET COUNT 227 X10'3 (140-440); RED BLOOD COUNT 4.04 X10'6 (4.20-5.60); RED CELL DISTRIBUTION WIDTH 14.2 % (11.5-14.5)
[2020-08-01 14:38] LABS: ALANINE AMINOTRANSFERASE 16 U/L (12-78); ALBUMIN 3.5 G/DL (3.4-5.0); ALBUMIN/GLOBULIN RATIO 0.9 (1.1-1.5); ALKALINE PHOSPHATASE 93 IU/L (46-116); ANION GAP 3 (8-16); ASPARTATE AMINO TRANSFERASE 8 U/L (10-37); BILIRUBIN,TOTAL 0.3 MG/DL (0.1-1.0); BLOOD UREA NITROGEN 7 MG/DL (7-18); BUN/CREATININE RATIO 7.7 (6.6-38.0); CALCIUM 8.9 MG/DL (8.5-10.1); CHLORIDE 105 MMOL/L (99-107); CREATININE 0.91 MG/DL (0.40-0.90); GLUCOSE 112 MG/DL (70-104); SODIUM 142 MMOL/L (135-145); TOTAL CARBON DIOXIDE 33.7 MMOL/L (24-32); TOTAL PROTEIN 7.5 G/DL (6.4-8.2); eGFR 63 ML/MIN
[2020-08-01 14:58] LABS: LIPASE 69 U/L (73-393)
[2020-08-01] MEDS ORDERED: iohexol 300mg/ml 100ml inj. ONE (15:17)
[2020-08-01 16:05] VITALS: BP 142/77
[2020-08-01] MEDS ORDERED: ONDA4TAB6 PO (16:19)
[2020-08-01] MEDS ORDERED: DICY10CA88 PO (16:19)
[2020-08-01] MEDS ORDERED: CEPH500C5 PO (16:19)
== END 2020-08-01 16:42 | disposition home or self-care (01) ==
LOC: ER 12:31
DX: T50.995A Adverse effect of other drugs, medicaments and biological substances, initial encounter (principal); L03.114 Cellulitis of left upper limb; L03.113 Cellulitis of right upper limb; R11.2 Nausea with vomiting, unspecified; Z88.0 Allergy status to penicillin; Z88.6 Allergy status to analgesic agent; Z88.1 Allergy status to other antibiotic agents; Z91.012 Allergy to eggs; Z79.899 Other long term (current) drug therapy; Z79.1 Long term (current) use of non-steroidal anti-inflammatories (NSAID); Y92.89 Other specified places as the place of occurrence of the external cause; Z20.828 Contact with and (suspected) exposure to other viral communicable diseases
CPT/HCPCS: 36415; 74177; 76700; 80053; 83690; 84484; 85025; 87635; 99285; Q9967

== ENCOUNTER 2021-01-13 22:16 | Emergency (ER) | payer MEDICAID ==
[~2021-01-13] VITALS: Ht 167.6 cm; Wt 90.9 kg
[~2021-01-13 22:16] MED LIST changes: +DICY10CA88 PO; +ONDA4TAB6 PO
[2021-01-13 23:10] LABS: BASOPHILS % (AUTO) 0.4 % (0-1); EOSINOPHILS # (AUTO) 0.1 X10'3 (0-0.9); EOSINOPHILS % (AUTO) 1.6 % (0-6); HEMATOCRIT 36.3 % (35.0-45.0); HEMOGLOBIN 12.5 g/dl (12.0-16.0); LYMPHOCYTES # (AUTO) 2.9 X10'3 (1.1-4.8); LYMPHOCYTES % (AUTO) 40.1 % (21-51); MEAN CORPUSCULAR HEMOGLOBIN 31.4 PG (27.0-31.0); MEAN CORPUSCULAR HGB CONC 34.4 g/dL (33.0-36.5); MEAN CORPUSCULAR VOLUME 91.3 FL (78-98); MEAN PLATELET VOLUME 6.9 FL (7.4-10.4); MONOCYTES # (AUTO) 0.5 X10'3 (0-0.9); MONOCYTES % (AUTO) 6.3 % (2-12); NEUTROPHILS # (AUTO) 3.8 X10'3 (1.8-7.7); NEUTROPHILS % (AUTO) 51.6 % (42-75); PLATELET COUNT 260 X10'3 (140-440); RED BLOOD COUNT 3.98 X10'6 (4.20-5.60); RED CELL DISTRIBUTION WIDTH 13.7 % (11.5-14.5); WHITE BLOOD COUNT 7.3 X10'3 (4.5-11.0)
[2021-01-13 23:22] LABS: ALANINE AMINOTRANSFERASE 18 U/L (12-78); ALBUMIN 3.7 G/DL (3.4-5.0); ALBUMIN/GLOBULIN RATIO 0.9 (1.1-1.5); ALKALINE PHOSPHATASE 88 IU/L (46-116); ANION GAP 6 (8-16); ASPARTATE AMINO TRANSFERASE 13 U/L (10-37); BILIRUBIN,TOTAL 0.3 MG/DL (0.1-1.0); BLOOD UREA NITROGEN 6 MG/DL (7-18); BUN/CREATININE RATIO 4.9 (6.6-38.0); CALCIUM 9.1 MG/DL (8.5-10.1); CHLORIDE 103 MMOL/L (99-107); CREATININE 1.22 MG/DL (0.40-0.90); GLUCOSE 114 MG/DL (70-104); POTASSIUM 3.6 MMOL/L (3.5-5.1); SODIUM 142 MMOL/L (135-145); TOTAL CARBON DIOXIDE 33.1 MMOL/L (24-32); TOTAL PROTEIN 7.6 G/DL (6.4-8.2); eGFR 45 ML/MIN
--- NOTE | 2021-01-14 01:15 | NUR ---
PT REPORTS INCREASING HEADACHE AND CHEST PAIN AND NECK PAIN. STATES ALL SYMPTOMS STARTED YESTERDAY MORNING. CURRENT VSS.
--- NOTE | 2021-01-14 03:11 | NUR ---
PT WITH STABLE VS. AWAITING ER MD.
[2021-01-14] MEDS ORDERED: ondansetron/PF 4mg/2ml inj IV ONE ×2 (03:35→07:10)
--- NOTE | 2021-01-14 03:37 | NUR ---
DR. LUNA UPDATED THAT PT WITH SEVERE PAIN TO NECK LYMPH NODES AND LEFT ARM AND LEFT SHOULDER. VERBAL RECEIVED FOR ZOFRAN AND STREP SWAB.
[2021-01-14] MEDS ORDERED: ketorolac tromethamine 15mg/ml inj. IV ONE (04:55)
[2021-01-14] MEDS ORDERED: normal saline 1000ML IV soln IVB ONE (04:55)
[2021-01-14] MEDS ORDERED: iohexol 350MG/ML 100ml bottle IV ONE (05:07)
[2021-01-14 05:24] LABS: D-DIMER 0.77 MG/L FEU (0-0.50); PARTIAL THROMBOPLASTIN TIME 26 SECONDS (22-32)
[2021-01-14 05:30] LABS: MAGNESIUM 2.1 MG/DL (1.5-2.4)
[2021-01-14] MEDS ORDERED: morphine 4 MG/ML inj SYRINge IV ONE (07:10)
[2021-01-14] MEDS ORDERED: SUMAtriptan succ. 6 MG/0.5ml vial SQ ONE (07:15)
[2021-01-14 07:30] VITALS: BP 147/101
== END 2021-01-14 07:31 | disposition home or self-care (01) ==
LOC: ER 22:18
DX: R59.0 Localized enlarged lymph nodes (principal); R07.89 Other chest pain; R25.2 Cramp and spasm; G43.909 Migraine, unspecified, not intractable, without status migrainosus; I25.10 Atherosclerotic heart disease of native coronary artery without angina pectoris; I50.9 Heart failure, unspecified; E78.00 Pure hypercholesterolemia, unspecified; J44.9 Chronic obstructive pulmonary disease, unspecified; G89.29 Other chronic pain; F41.9 Anxiety disorder, unspecified; F32.9 Major depressive disorder, single episode, unspecified; F17.200 Nicotine dependence, unspecified, uncomplicated; Z98.890 Other specified postprocedural states; Z56.0 Unemployment, unspecified; Z88.0 Allergy status to penicillin; Z88.1 Allergy status to other antibiotic agents; Z88.8 Allergy status to other drugs, medicaments and biological substances; Z88.6 Allergy status to analgesic agent; Z91.012 Allergy to eggs; Z79.82 Long term (current) use of aspirin; Z79.899 Other long term (current) drug therapy
CPT/HCPCS: 36415; 70491; 71045; 71275; 80053; 83880; 84484; 85025; 85379; 85610; 85730; 87081; 87880; 93005; 96361; 96372; 96374; 96375; 96376; 99285; J1885; J2270; J2405; J7030; Q9967; 83735; J3030

== ENCOUNTER 2021-03-29 17:25 | Emergency (ER) | payer MEDICAID ==
[~2021-03-29] VITALS: Ht 167.6 cm; Wt 88.2 kg
[2021-03-29 17:26] VITALS: BP 146/83
[2021-03-29] MEDS ORDERED: dexamethasone sod phosphate 10mg/ml inj IM STA (18:23)
[2021-03-29] MEDS ORDERED: ketorolac trometh. 30mg/ml inj. IM ONE (18:25)
[2021-03-29] MEDS ORDERED: orphenadrine citrate 60mg/2ml inj. IM ONE (18:25)
[2021-03-29] MEDS ORDERED: ketorolac trometh inj. 60 MG/2 ML VIAL IM ONE (18:25)
[2021-03-29] MEDS ORDERED: ORPH100T2 PO (18:27)
== END 2021-03-29 18:54 | disposition home or self-care (01) ==
LOC: ER 17:25
DX: M54.41 Lumbago with sciatica, right side (principal); G89.29 Other chronic pain; M62.830 Muscle spasm of back; G43.909 Migraine, unspecified, not intractable, without status migrainosus; I25.10 Atherosclerotic heart disease of native coronary artery without angina pectoris; I50.9 Heart failure, unspecified; E78.00 Pure hypercholesterolemia, unspecified; I25.2 Old myocardial infarction; J44.9 Chronic obstructive pulmonary disease, unspecified; F41.9 Anxiety disorder, unspecified; F32.9 Major depressive disorder, single episode, unspecified; Z98.890 Other specified postprocedural states; Z56.0 Unemployment, unspecified; Z88.0 Allergy status to penicillin; Z88.8 Allergy status to other drugs, medicaments and biological substances; Z88.1 Allergy status to other antibiotic agents; Z91.012 Allergy to eggs; Z88.6 Allergy status to analgesic agent; Z79.82 Long term (current) use of aspirin; Z79.899 Other long term (current) drug therapy
CPT/HCPCS: 96372; 99284; J1100; J1885; J2360

== ENCOUNTER 2021-07-22 11:25 | Emergency (ER) | payer MEDICAID ==
[~2021-07-22] VITALS: Ht 167.6 cm; Wt 86.0 kg
[~2021-07-22 11:25] MED LIST changes: +ORPH100T2 PO
[2021-07-22] MEDS ORDERED: normal saline 1000ML IV soln IV ONE (11:40)
[2021-07-22 11:58] LABS: BASOPHILS % (AUTO) 0.3 % (0-1); EOSINOPHILS % (AUTO) 0 % (0-6); HEMOGLOBIN 11.1 g/dl (12.0-16.0); LYMPHOCYTES # (AUTO) 1.1 X10'3 (1.1-4.8); LYMPHOCYTES % (AUTO) 11.8 % (21-51); MEAN CORPUSCULAR HEMOGLOBIN 30.7 PG (27.0-31.0); MEAN CORPUSCULAR HGB CONC 34.5 g/dL (33.0-36.5); MEAN CORPUSCULAR VOLUME 89.1 FL (78-98); MEAN PLATELET VOLUME 7.4 FL (7.4-10.4); MONOCYTES # (AUTO) 0.5 X10'3 (0-0.9); MONOCYTES % (AUTO) 4.9 % (2-12); NEUTROPHILS # (AUTO) 7.8 X10'3 (1.8-7.7); PLATELET COUNT 177 X10'3 (140-440); RED CELL DISTRIBUTION WIDTH 14.1 % (11.5-14.5); WHITE BLOOD COUNT 9.4 X10'3 (4.5-11.0)
[2021-07-22] MEDS ORDERED: dexamethasone sod phosphate 10mg/ml inj IV STA (12:01)
[2021-07-22 12:10] LABS: ALANINE AMINOTRANSFERASE 20 U/L (12-78); ALBUMIN 2.9 G/DL (3.4-5.0); ALBUMIN/GLOBULIN RATIO 0.6 (1.1-1.5); ALKALINE PHOSPHATASE 68 IU/L (46-116); ANION GAP 5 (8-16); ASPARTATE AMINO TRANSFERASE 32 U/L (10-37); BILIRUBIN,TOTAL 0.5 MG/DL (0.1-1.0); BLOOD UREA NITROGEN 13 MG/DL (7-18); BUN/CREATININE RATIO 11.1 (6.6-38.0); CALCIUM 8.5 MG/DL (8.5-10.1); CHLORIDE 96 MMOL/L (99-107); CREATININE 1.17 MG/DL (0.40-0.90); GLUCOSE 178 MG/DL (70-104); POTASSIUM 4.4 MMOL/L (3.5-5.1); SODIUM 134 MMOL/L (135-145); TOTAL CARBON DIOXIDE 33.3 MMOL/L (24-32); TOTAL PROTEIN 7.4 G/DL (6.4-8.2); eGFR 47 ML/MIN
[2021-07-22 12:14] LABS: MAGNESIUM 2.2 MG/DL (1.5-2.4)
[2021-07-22 12:24] LABS: D-DIMER 0.74 MG/L FEU (0-0.50)
[2021-07-22 12:56] LABS: TOTAL CELLS COUNTED 100
[2021-07-22 12:57] LABS: PLATELET ESTIMATE NORMAL
[2021-07-22 13:32] VITALS: BP 120/68
[2021-07-22] MEDS ORDERED: BUDE180A INH (13:32)
[2021-07-22] MEDS ORDERED: DOXY100C43 PO (13:32)
== END 2021-07-22 14:05 | disposition home or self-care (01) ==
LOC: ER 11:25
DX: U07.1 COVID-19 (principal); J40 Bronchitis, not specified as acute or chronic; R06.02 Shortness of breath; R05.9 Cough, unspecified; G43.909 Migraine, unspecified, not intractable, without status migrainosus; I25.10 Atherosclerotic heart disease of native coronary artery without angina pectoris; I50.9 Heart failure, unspecified; E78.00 Pure hypercholesterolemia, unspecified; I25.2 Old myocardial infarction; J44.9 Chronic obstructive pulmonary disease, unspecified; G89.29 Other chronic pain; F41.9 Anxiety disorder, unspecified; F32.9 Major depressive disorder, single episode, unspecified; F17.210 Nicotine dependence, cigarettes, uncomplicated; Z98.890 Other specified postprocedural states; Z56.0 Unemployment, unspecified; Z88.0 Allergy status to penicillin; Z91.012 Allergy to eggs; Z88.1 Allergy status to other antibiotic agents; Z88.6 Allergy status to analgesic agent; Z88.8 Allergy status to other drugs, medicaments and biological substances; Z79.82 Long term (current) use of aspirin; Z79.2 Long term (current) use of antibiotics; Z79.899 Other long term (current) drug therapy
CPT/HCPCS: 36415; 71045; 80053; 83735; 84145; 84484; 85007; 85025; 85379; 87635; 93005; 96374; 99285; C9803; J1100; J7030

== ENCOUNTER 2021-11-21 21:14 | Emergency (ER) | payer MEDICAID ==
[~2021-11-21] VITALS: Ht 167.6 cm; Wt 85.9 kg
[~2021-11-21 21:14] MED LIST changes: +BUDE180A INH
[2021-11-21] MEDS ORDERED: ketorolac trometh. 30mg/ml inj. IM ONE (22:45)
[2021-11-21] MEDS ORDERED: ondansetron/PF 4mg/2ml inj IV ONE (22:55)
[2021-11-21] MEDS ORDERED: morphine 4 MG/ML inj SYRINge IV ONE (22:55)
[2021-11-21] MEDS ORDERED: ketorolac trometh. 30mg/ml inj. IV ONE (23:10)
[2021-11-22 00:14] LABS: D-DIMER 1.36 MG/L FEU (0-0.50)
[2021-11-22] MEDS ORDERED: iohexol 350MG/ML 100ml bottle IV ONE (01:08)
[2021-11-22 02:15] VITALS: BP 143/75
== END 2021-11-22 02:16 | disposition home or self-care (01) ==
LOC: ER 21:15
DX: R07.89 Other chest pain (principal); M54.9 Dorsalgia, unspecified; R05.9 Cough, unspecified; I11.0 Hypertensive heart disease with heart failure; E78.00 Pure hypercholesterolemia, unspecified; G43.909 Migraine, unspecified, not intractable, without status migrainosus; G89.29 Other chronic pain; F41.9 Anxiety disorder, unspecified; F32.9 Major depressive disorder, single episode, unspecified; Z88.0 Allergy status to penicillin; Z88.6 Allergy status to analgesic agent; Z91.018 Allergy to other foods; Z88.1 Allergy status to other antibiotic agents
CPT/HCPCS: 36415; 71046; 71275; 85379; 93005; 96374; 96375; 99285; J1885; J2270; J2405; Q9967

== ENCOUNTER 2021-12-08 08:30 | Inpatient (IN) | payer MEDICAID ==
[2021-12-08] VITALS (7 sets, daily range): BP systolic 88–127; BP diastolic 69–75
[~2021-12-08] VITALS: Ht 167.6 cm; Wt 90.0 kg
[2021-12-08 08:49] LABS: BASOPHILS % (AUTO) 0.3 % (0-1); EOSINOPHILS # (AUTO) 0.2 X10'3 (0-0.9); EOSINOPHILS % (AUTO) 2.2 % (0-6); HEMOGLOBIN 12.5 g/dl (12.0-16.0); LYMPHOCYTES # (AUTO) 2.4 X10'3 (1.1-4.8); MEAN CORPUSCULAR HEMOGLOBIN 30.1 PG (27.0-31.0); MEAN CORPUSCULAR HGB CONC 33.7 g/dL (33.0-36.5); MEAN CORPUSCULAR VOLUME 89.4 FL (78-98); MEAN PLATELET VOLUME 6.6 FL (7.4-10.4); MONOCYTES # (AUTO) 0.5 X10'3 (0-0.9); MONOCYTES % (AUTO) 7.2 % (2-12); NEUTROPHILS # (AUTO) 3.6 X10'3 (1.8-7.7); NEUTROPHILS % (AUTO) 54.3 % (42-75); PLATELET COUNT 279 X10'3 (140-440); RED BLOOD COUNT 4.14 X10'6 (4.20-5.60); RED CELL DISTRIBUTION WIDTH 13.6 % (11.5-14.5); WHITE BLOOD COUNT 6.7 X10'3 (4.5-11.0)
[2021-12-08 08:57] LABS: ALANINE AMINOTRANSFERASE 16 U/L (12-78); ALBUMIN 1.6 G/DL (3.4-5.0); ALBUMIN/GLOBULIN RATIO 0.3 (1.1-1.5); ALKALINE PHOSPHATASE 80 IU/L (46-116); ANION GAP 6 (8-16); ASPARTATE AMINO TRANSFERASE 14 U/L (10-37); BILIRUBIN,TOTAL 0.2 MG/DL (0.1-1.0); BLOOD UREA NITROGEN 9 MG/DL (7-18); BUN/CREATININE RATIO 12.2 (6.6-38.0); CALCIUM 8.5 MG/DL (8.5-10.1); CHLORIDE 102 MMOL/L (99-107); CREATININE 0.74 MG/DL (0.40-0.90); GLUCOSE 173 MG/DL (70-104); POTASSIUM 3.7 MMOL/L (3.5-5.1); SODIUM 140 MMOL/L (135-145); TOTAL CARBON DIOXIDE 31.6 MMOL/L (24-32); eGFR 80 ML/MIN
[2021-12-08] MEDS ORDERED: mag hydrox/Alum hydrox/simeth 30ml oral suspension PO ONE (09:40)
[2021-12-08] MEDS ORDERED: nitroGLYCERIN 0.4mg SUBLingual tab SL PRN ×3 (09:40→12:20)
[2021-12-08] MEDS ORDERED: ondansetron/PF 4mg/2ml inj IV ONE (09:45)
[2021-12-08] MEDS ORDERED: PRAMIPEXOLE DI HCL 1.5 MG PO PRN (12:15)
[2021-12-08] MEDS ORDERED: non-formulary drug (Ondansetron Hcl (Zofran) 1 TAB) PO SCH (12:15)
[2021-12-08] MEDS ORDERED: ORPHENADRINE CITRATE PO SCH (12:15)
[2021-12-08] MEDS ORDERED: potassium CL 10mEq/100ml bag 100 ML IV PRN (12:20)
[2021-12-08] MEDS ORDERED: magnesium 2GM in 50ml NS 50 ML IV PRN (12:20)
[2021-12-08] MEDS ORDERED: diphenhydrAMINE 25mg capsule PO PRN (12:20)
[2021-12-08] MEDS ORDERED: magnesium 4gm in 100ml NS 100 ML IV PRN (12:20)
[2021-12-08] MEDS ORDERED: metoprolol tartrate 1mg/ml inj IV PRN (12:20)
[2021-12-08] MEDS ORDERED: acetaminophen 650mg rectal suppository RC PRN (12:20)
[2021-12-08] MEDS ORDERED: acetaminophen 325mg tablet PO PRN ×2 (12:20)
[2021-12-08] MEDS ORDERED: potassium Cl 20 mEq SR tablet PO PRN ×2 (12:20)
[2021-12-08] MEDS ORDERED: HYDROcodone/acetaminophen 5mg/325mg tablet PO PRN (12:20)
[2021-12-08] MEDS ORDERED: mag hydrox/Alum hydrox/simeth 30ml oral suspension PO PRN (12:20)
[2021-12-08] MEDS ORDERED: magnesium Cl slow-release 64mg tablet PO PRN (12:20)
[2021-12-08] MEDS ORDERED: regadenoson 0.4mg/5ml syringe IV PRN (12:20)
[2021-12-08] MEDS ORDERED: morphine 2 MG/ML inj. syringe IV PRN ×2 (12:20)
[2021-12-08] MEDS ORDERED: bisacodyl 10mg suppository rectal RC PRN (12:20)
[2021-12-08] MEDS ORDERED: aminophylline 500mg/20ml vial IV PRN (12:20)
[2021-12-08] MEDS ORDERED: PERFLUTREN PROTEIN-A MICROSPHR (Optison) 0.22 MG/ML 3ML VIAL IV PRN (12:20)
[2021-12-08] MEDS ORDERED: CLON0.5T54 PO (12:22)
[2021-12-08] MEDS ORDERED: ISOS30TA84 PO (12:27)
[2021-12-08] MEDS ORDERED: CHOL200012 PO (12:27)
[2021-12-08] MEDS ORDERED: PRAM0.252 PO (12:27)
[2021-12-08] MEDS ORDERED: ATOR40TA71 PO (12:27)
[2021-12-08] MEDS ORDERED: TIZA-205 PO (12:48)
[2021-12-08] MEDS ORDERED: AMIT25TA9 PO (12:48)
[2021-12-08] MEDS ORDERED: TIOT4MIS3 INH (12:48)
[2021-12-08] MEDS ORDERED: LIDO700A47 TOP (12:48)
[2021-12-08] MEDS ORDERED: PROM25TA14 PO (12:48)
[2021-12-08] MEDS ORDERED: QUET200T PO (12:48)
[2021-12-08] MEDS ORDERED: LIDOcaine 5% patch TP PRN (13:00)
[2021-12-08] MEDS ORDERED: non-formulary drug (Clonazepam 1 TAB) PO PRN (13:00)
[2021-12-08] MEDS ORDERED: tizanidine 4mg tablet PO PRN (13:00)
[2021-12-08] MEDS: normal saline 1000ml 1,000 ML IV SCH (13:14)
--- NOTE | 2021-12-08 14:00 | NUR ---
PT TO NM
[2021-12-08] MEDS: ipratropium/albuterol 3ml nebule NEB SCH ×3 (15:00→23:00)
[2021-12-08] MEDS ORDERED: proMETHazine 12.5mg rectal suppository RC SCH (16:00)
[2021-12-08] MEDS: morphine ER 30mg tablet PO SCH (16:05)
[2021-12-08] MEDS: pantoprazole 40mg Tablet.DR PO SCH (18:00)
[2021-12-08] MEDS: K and/or MAG REPLACEMENT MC SCH (19:28)
--- NOTE | 2021-12-08 19:44 | NUR ---
PATIENT ACTIVELY REFUSES BREATHING TREATMENT STATING THAT DOES NOT FEEL SHE NEEDS IT. PATIENT EDUCATED ABOUT THE POSSIBLE OUTCOMES OF REFUSAL. PATIENT VERBALIZES UNDERSTANDING . ALL NEEDS MET AT THIS TIME. WILL CONTINUE MONITOR PATIENT.
[2021-12-08] MEDS ORDERED: dicyclomine 10 MG capsule PO SCH (20:00)
[2021-12-08] MEDS ORDERED: BUDESONIDE 180 MCG AER.POW.BA INH SCH (20:00)
[2021-12-08] MEDS ORDERED: PSYLLIUM HUSK PO SCH (20:00)
[2021-12-08] MEDS: clonazePAM 0.5mg tablet PO PRN (20:21)
[2021-12-08] MEDS: amitriptyline 50mg tablet PO SCH (20:21)
[2021-12-08] MEDS: pramipexole 0.25mg tablet PO SCH (20:21)
[2021-12-08] MEDS: QUEtiapine 25mg tablet PO SCH (20:22)
[2021-12-08] MEDS: docusate sod 100mg capsule PO SCH (20:22)
[2021-12-08] MEDS: atorvastatin 20mg tablet PO SCH (20:22)
[2021-12-08] MEDS: heparin, porcine 5000 units/ml vial SQ SCH (20:48)
--- NOTE | 2021-12-08 20:50 | NUR ---
PATIENT PACK OF CIGARETTE IN PATIENT SPECIFIC.
[2021-12-08] MEDS: budesonide 0.5mg/2ml UD nebule IH SCH (21:00)
[2021-12-08] MEDS ORDERED: non-formulary drug (Atorvastatin Calcium 1 TABLET) PO SCH (21:00)
[2021-12-08] MEDS ORDERED: quetiapine 100mg tablet PO SCH (21:00)
[2021-12-09] MEDS: ipratropium/albuterol 3ml nebule NEB SCH ×6 (02:42→22:48)
[2021-12-09 03:00] VITALS: BP 98/78
[2021-12-09] MEDS: HYDROcodone/acetaminophen 10/325mg tab PO PRN ×4 (03:20→23:34)
[2021-12-09] MEDS: ondansetron/PF 4mg/2ml inj IV PRN ×2 (03:22→15:23)
[2021-12-09 06:00] VITALS: BP 97/57
[2021-12-09 06:02] LABS: BASOPHILS % (AUTO) 0.5 % (0-1); EOSINOPHILS # (AUTO) 0.1 X10'3 (0-0.9); EOSINOPHILS % (AUTO) 2.4 % (0-6); HEMATOCRIT 36.6 % (35.0-45.0); HEMOGLOBIN 12.1 g/dl (12.0-16.0); LYMPHOCYTES # (AUTO) 2.4 X10'3 (1.1-4.8); LYMPHOCYTES % (AUTO) 42.1 % (21-51); MEAN CORPUSCULAR HEMOGLOBIN 29.4 PG (27.0-31.0); MEAN CORPUSCULAR HGB CONC 33.1 g/dL (33.0-36.5); MEAN CORPUSCULAR VOLUME 88.7 FL (78-98); MEAN PLATELET VOLUME 6.7 FL (7.4-10.4); MONOCYTES # (AUTO) 0.4 X10'3 (0-0.9); MONOCYTES % (AUTO) 7.3 % (2-12); NEUTROPHILS # (AUTO) 2.7 X10'3 (1.8-7.7); NEUTROPHILS % (AUTO) 47.7 % (42-75); PLATELET COUNT 259 X10'3 (140-440); RED BLOOD COUNT 4.13 X10'6 (4.20-5.60); RED CELL DISTRIBUTION WIDTH 13.7 % (11.5-14.5); WHITE BLOOD COUNT 5.6 X10'3 (4.5-11.0)
[2021-12-09 06:25] LABS: ALANINE AMINOTRANSFERASE 14 U/L (12-78); ALBUMIN 3.1 G/DL (3.4-5.0); ALBUMIN/GLOBULIN RATIO 0.9 (1.1-1.5); ALKALINE PHOSPHATASE 77 IU/L (46-116); ANION GAP 4 (8-16); ASPARTATE AMINO TRANSFERASE 14 U/L (10-37); BILIRUBIN,TOTAL 0.2 MG/DL (0.1-1.0); BLOOD UREA NITROGEN 8 MG/DL (7-18); BUN/CREATININE RATIO 9.4 (6.6-38.0); CALCIUM 8.6 MG/DL (8.5-10.1); CHLORIDE 102 MMOL/L (99-107); CHOLESTEROL 193 MG/DL (0-200); CREATININE 0.85 MG/DL (0.40-0.90); GLUCOSE 137 MG/DL (70-104); HDL CHOLESTEROL 32 MG/DL (35-60); LDL CHOLESTEROL 119 MG/DL (50-100); MAGNESIUM 2.2 MG/DL (1.5-2.4); PHOSPHORUS 4.2 MG/DL (2.3-4.5); POTASSIUM 4.3 MMOL/L (3.5-5.1); SODIUM 140 MMOL/L (135-145); TOTAL CARBON DIOXIDE 34.2 MMOL/L (24-32); TOTAL PROTEIN 6.7 G/DL (6.4-8.2); TRIGLYCERIDES 211 MG/DL (20-135); eGFR 68 ML/MIN
--- NOTE | 2021-12-09 06:27 | NUR ---
Problems reprioritized. Patient report given, questions answered & plan of care reviewed with FAUSTINO SUAZO AND
[2021-12-09] MEDS: cholecalciferol (vitamin D3) 1,000 unit (25mcg) tablet PO SCH (07:41)
[2021-12-09] MEDS: magnesium hydroxide 30ml (MOM) UD suspension PO PRN (07:41)
[2021-12-09] MEDS: docusate sod 100mg capsule PO SCH ×2 (07:42→20:21)
[2021-12-09] MEDS: morphine ER 30mg tablet PO SCH ×2 (07:42→14:00)
[2021-12-09] MEDS: heparin, porcine 5000 units/ml vial SQ SCH ×2 (07:42→20:21)
[2021-12-09] MEDS: aspirin 81mg, enteric-coated 1 TAB TABLET.DR PO SCH (07:43)
[2021-12-09] MEDS: isosorbide mononitrate 30mg tab.SR.24H PO SCH (07:43)
[2021-12-09] MEDS: normal saline 1000ml 1,000 ML IV SCH (07:48)
[2021-12-09] MEDS: budesonide 0.5mg/2ml UD nebule IH SCH ×2 (07:50→19:39)
[2021-12-09] MEDS: K and/or MAG REPLACEMENT MC SCH ×2 (08:00→20:00)
[2021-12-09] MEDS ORDERED: non-formulary drug (Cholecalciferol (Vitamin D3) (Vitamin D3) 1 CAP) PO SCH (08:00)
[2021-12-09] MEDS ORDERED: isosorbide mononitrate 30mg tab.SR.24H PO SCH (08:00)
[2021-12-09] MEDS ORDERED: non-formulary drug (Tiotropium Bromide (Spiriva) 1 CAP) INH SCH (08:00)
[2021-12-09 11:00] VITALS: BP 94/59
[2021-12-09] MEDS: nicotine 21mg patch - 24 hr TD SCH (11:07)
[2021-12-09 15:00] VITALS: BP 119/64
--- NOTE | 2021-12-09 15:21 | NUR ---
ms contin 30 mg manually administered d/t the label was ripped
[2021-12-09] MEDS: pantoprazole 40mg Tablet.DR PO SCH (17:42)
[2021-12-09 18:00] VITALS: BP 106/73
[2021-12-09] MEDS: pramipexole 0.25mg tablet PO SCH (20:20)
[2021-12-09] MEDS: clonazePAM 0.5mg tablet PO PRN (20:21)
[2021-12-09] MEDS: QUEtiapine 25mg tablet PO SCH (20:21)
[2021-12-09] MEDS: amitriptyline 50mg tablet PO SCH (20:21)
[2021-12-09] MEDS: atorvastatin 20mg tablet PO SCH (20:21)
[2021-12-09 22:00] VITALS: BP 120/72
[2021-12-10 02:00] VITALS: BP 122/71
[2021-12-10] MEDS: ipratropium/albuterol 3ml nebule NEB SCH ×3 (03:00→11:00)
[2021-12-10] MEDS: normal saline 1000ml 1,000 ML IV SCH (04:20)
[2021-12-10 06:00] VITALS: BP 137/84
[2021-12-10] MEDS: morphine ER 30mg tablet PO SCH (06:21)
--- NOTE | 2021-12-10 06:43 | NUR ---
Problems reprioritized. Patient report given, questions answered & plan of care reviewed with Dora HARMON .
--- NOTE | 2021-12-10 07:10 | NUR ---
Pt. refused 07 svn- not resp distress observed
[2021-12-10] MEDS: K and/or MAG REPLACEMENT MC SCH (07:57)
[2021-12-10 08:00] LABS: BASOPHILS % (AUTO) 0.5 % (0-1); EOSINOPHILS # (AUTO) 0.1 X10'3 (0-0.9); EOSINOPHILS % (AUTO) 1.5 % (0-6); HEMATOCRIT 35.8 % (35.0-45.0); HEMOGLOBIN 12.1 g/dl (12.0-16.0); LYMPHOCYTES # (AUTO) 2.2 X10'3 (1.1-4.8); LYMPHOCYTES % (AUTO) 34.5 % (21-51); MEAN CORPUSCULAR HEMOGLOBIN 30.8 PG (27.0-31.0); MEAN CORPUSCULAR HGB CONC 33.8 g/dL (33.0-36.5); MEAN CORPUSCULAR VOLUME 91.1 FL (78-98); MEAN PLATELET VOLUME 6.6 FL (7.4-10.4); MONOCYTES # (AUTO) 0.5 X10'3 (0-0.9); MONOCYTES % (AUTO) 8.3 % (2-12); NEUTROPHILS # (AUTO) 3.6 X10'3 (1.8-7.7); NEUTROPHILS % (AUTO) 55.2 % (42-75); PLATELET COUNT 218 X10'3 (140-440); RED BLOOD COUNT 3.93 X10'6 (4.20-5.60); RED CELL DISTRIBUTION WIDTH 13.2 % (11.5-14.5); WHITE BLOOD COUNT 6.5 X10'3 (4.5-11.0)
[2021-12-10] MEDS: nicotine 21mg patch - 24 hr TD SCH (08:13)
[2021-12-10] MEDS: cholecalciferol (vitamin D3) 1,000 unit (25mcg) tablet PO SCH (08:14)
[2021-12-10] MEDS: docusate sod 100mg capsule PO SCH (08:14)
[2021-12-10] MEDS: isosorbide mononitrate 30mg tab.SR.24H PO SCH (08:14)
[2021-12-10] MEDS: aspirin 81mg, enteric-coated 1 TAB TABLET.DR PO SCH (08:14)
[2021-12-10] MEDS: heparin, porcine 5000 units/ml vial SQ SCH (08:15)
--- NOTE | 2021-12-10 08:15 | NUR ---
manually administered AM colace, asa 81, and heparin - scanning barcode was unable to scan.
[2021-12-10 08:22] LABS: ALANINE AMINOTRANSFERASE 16 U/L (12-78); ALBUMIN 3.2 G/DL (3.4-5.0); ALBUMIN/GLOBULIN RATIO 0.9 (1.1-1.5); ALKALINE PHOSPHATASE 76 IU/L (46-116); ANION GAP 6 (8-16); ASPARTATE AMINO TRANSFERASE 12 U/L (10-37); BILIRUBIN,TOTAL 0.2 MG/DL (0.1-1.0); BLOOD UREA NITROGEN 7 MG/DL (7-18); BUN/CREATININE RATIO 7.1 (6.6-38.0); CALCIUM 8.7 MG/DL (8.5-10.1); CHLORIDE 100 MMOL/L (99-107); CREATININE 0.99 MG/DL (0.40-0.90); GLUCOSE 118 MG/DL (70-104); MAGNESIUM 2.3 MG/DL (1.5-2.4); PHOSPHORUS 4.4 MG/DL (2.3-4.5); POTASSIUM 4.5 MMOL/L (3.5-5.1); SODIUM 139 MMOL/L (135-145); TOTAL CARBON DIOXIDE 33.1 MMOL/L (24-32); TOTAL PROTEIN 6.8 G/DL (6.4-8.2); eGFR 57 ML/MIN
[2021-12-10] MEDS: clonazePAM 0.5mg tablet PO PRN (08:29)
[2021-12-10] MEDS: magnesium hydroxide 30ml (MOM) UD suspension PO PRN (08:31)
[2021-12-10] MEDS: budesonide 0.5mg/2ml UD nebule IH SCH (09:00)
[2021-12-10 11:00] VITALS: BP 93/57
--- NOTE | 2021-12-10 11:55 | NUR ---
1107 nicotine patch not documented, L shoulder nicotine patch not present for removal. All skin looked at to ensure patch was not present, bedding looked through, patch not present. New patch was placed to R shoulder.
[2021-12-10] MEDS ORDERED: NAPR-1170 PO (12:05)
[2021-12-10] MEDS ORDERED: NICO-687 TD (12:05)
--- NOTE | 2021-12-10 13:14 | NUR ---
Pt stable for d/c All d/c ppwk was reviewed with patient. Pt verbalized understanding. PIV was removed - coban applied. Tele box was removed and given to telecommunications administrator. Pt got her belongings including her cigarettes in "pt specific". [facility] Was wheeled down in w/c by nursing staff to private vehicle where family was waiting.
== END 2021-12-10 13:00 | disposition home or self-care (01) | DRG 198 ==
LOC: ER 08:30 → ED HOLD 12:22 → PCU 3S 17:07
PROVIDERS: ADMIT Family Medicine; ATTEND Family Medicine
PROC: 4A02XM4 Measurement of Cardiac Total Activity, External Approach (ICD-10-PCS; principal; 2021-12-08)
PROC: 3E033HZ Introduction of Radioactive Substance into Peripheral Vein, Percutaneous Approach (ICD-10-PCS; 2021-12-08)
DX: I25.119 Atherosclerotic heart disease of native coronary artery with unspecified angina pectoris (principal); I50.9 Heart failure, unspecified; Z99.81 Dependence on supplemental oxygen; I11.0 Hypertensive heart disease with heart failure; E66.01 Morbid (severe) obesity due to excess calories; E78.00 Pure hypercholesterolemia, unspecified; E78.5 Hyperlipidemia, unspecified; F17.210 Nicotine dependence, cigarettes, uncomplicated; F32.A Depression, unspecified; F41.9 Anxiety disorder, unspecified; G89.4 Chronic pain syndrome; J44.9 Chronic obstructive pulmonary disease, unspecified; K21.9 Gastro-esophageal reflux disease without esophagitis; G43.909 Migraine, unspecified, not intractable, without status migrainosus; M54.9 Dorsalgia, unspecified; K76.9 Liver disease, unspecified; M94.0 Chondrocostal junction syndrome [Tietze]; Z79.899 Other long term (current) drug therapy; Z80.1 Family history of malignant neoplasm of trachea, bronchus and lung; Z80.3 Family history of malignant neoplasm of breast; Z80.7 Family history of other malignant neoplasms of lymphoid, hematopoietic and related tissues; I25.2 Old myocardial infarction; Z80.8 Family history of malignant neoplasm of other organs or systems; Z82.0 Family history of epilepsy and other diseases of the nervous system; Z86.16 Personal history of COVID-19; Z90.710 Acquired absence of both cervix and uterus; Z95.1 Presence of aortocoronary bypass graft; Z56.0 Unemployment, unspecified; Z68.32 Body mass index [BMI] 32.0-32.9, adult; Z88.0 Allergy status to penicillin; Z88.8 Allergy status to other drugs, medicaments and biological substances; Z91.012 Allergy to eggs; Z71.6 Tobacco abuse counseling
CPT/HCPCS: 36415; 71045; 78451; 80053; 80061; 83036; 83735; 83880; 84100; 84484; 85025; 93005; 93017; 93306; 94640; 94760; 96374; 97161; 99285; A9500; G0378; J1644; J2270; J2405; J2785; J7030

== ENCOUNTER 2022-02-03 15:42 | Emergency (ER) | payer MEDICAID ==
[~2022-02-03] VITALS: Ht 167.6 cm; Wt 89.0 kg
[~2022-02-03 15:42] MED LIST changes: +AMIT25TA9 PO; -ATOR20TA PO; +ATOR40TA71 PO; -BUDE180A INH; +CHOL200012 PO; +CLON0.5T54 PO; -CLON1TAB12 PO; -DICY10CA88 PO; -ERGO400C PO; +ISOS30TA84 PO; -ISOS30TA9 PO; +LIDO700A47 TOP; +NAPR-1170 PO; +NICO-687 TD; -ONDA4TAB6 PO; -ORPH100T2 PO; -PHE12.5R RC; +PRAM0.252 PO; -PRAM1.5T4 PO; +PROM25TA14 PO; -PSYL0.4C2 PO; -QUET-1 PO; +QUET200T PO; -TIOT18CA3 INH; +TIOT4MIS3 INH; +TIZA-205 PO
[2022-02-03 16:39] VITALS: BP 148/98
[2022-02-03 16:59] LABS: BASOPHILS % (AUTO) 0.5 % (0-1); EOSINOPHILS # (AUTO) 0.1 X10'3 (0-0.9); EOSINOPHILS % (AUTO) 1.8 % (0-6); HEMATOCRIT 37.7 % (35.0-45.0); HEMOGLOBIN 12.8 g/dl (12.0-16.0); LYMPHOCYTES # (AUTO) 2.3 X10'3 (1.1-4.8); LYMPHOCYTES % (AUTO) 33.3 % (21-51); MEAN CORPUSCULAR HGB CONC 33.9 g/dL (33.0-36.5); MEAN CORPUSCULAR VOLUME 88.2 FL (78-98); MEAN PLATELET VOLUME 6.5 FL (7.4-10.4); MONOCYTES # (AUTO) 0.5 X10'3 (0-0.9); MONOCYTES % (AUTO) 7.4 % (2-12); PLATELET COUNT 243 X10'3 (140-440); RED BLOOD COUNT 4.27 X10'6 (4.20-5.60)
[2022-02-03 17:22] LABS: ALANINE AMINOTRANSFERASE 12 U/L (12-78); ALBUMIN 3.8 G/DL (3.4-5.0); ALKALINE PHOSPHATASE 78 IU/L (46-116); ANION GAP 5 (8-16); ASPARTATE AMINO TRANSFERASE 14 U/L (10-37); BILIRUBIN,TOTAL 0.3 MG/DL (0.1-1.0); BLOOD UREA NITROGEN 12 MG/DL (7-18); BUN/CREATININE RATIO 12.4 (6.6-38.0); CALCIUM 8.7 MG/DL (8.5-10.1); CHLORIDE 103 MMOL/L (99-107); CREATININE 0.97 MG/DL (0.40-0.90); GLUCOSE 84 MG/DL (70-104); POTASSIUM 3.8 MMOL/L (3.5-5.1); SODIUM 138 MMOL/L (135-145); TOTAL CARBON DIOXIDE 29.8 MMOL/L (24-32); TOTAL PROTEIN 7.6 G/DL (6.4-8.2); eGFR 59 ML/MIN
== END 2022-02-03 20:03 | disposition left against medical advice (07) ==
LOC: ER 15:43
DX: R07.89 Other chest pain (principal); Z53.21 Procedure and treatment not carried out due to patient leaving prior to being seen by health care provider
CPT/HCPCS: 36415; 71045; 80053; 83880; 84484; 85025; 93005

== ENCOUNTER 2022-11-10 12:24 | Emergency (ER) | payer MEDICAID ==
[~2022-11-10] VITALS: Ht 167.6 cm; Wt 89.5 kg
[~2022-11-10 12:24] MED LIST changes: -ADV50100 IH; +CARV-50 PO; -ISOS30TA84 PO; -NAPR-1170 PO; -QUET200T PO; +QUET200T31 PO
[2022-11-10 12:48] LABS: BASOPHILS % (AUTO) 0.5 % (0-1); EOSINOPHILS # (AUTO) 0.2 X10'3 (0-0.9); HEMATOCRIT 34.1 % (35.0-45.0); HEMOGLOBIN 11.5 g/dl (12.0-16.0); LYMPHOCYTES # (AUTO) 2.8 X10'3 (1.1-4.8); LYMPHOCYTES % (AUTO) 30.8 % (21-51); MEAN CORPUSCULAR HEMOGLOBIN 30.1 PG (27.0-31.0); MEAN CORPUSCULAR HGB CONC 33.9 g/dL (33.0-36.5); MEAN CORPUSCULAR VOLUME 88.8 FL (78-98); MEAN PLATELET VOLUME 6.6 FL (7.4-10.4); MONOCYTES # (AUTO) 0.8 X10'3 (0-0.9); MONOCYTES % (AUTO) 9.1 % (2-12); NEUTROPHILS # (AUTO) 5.3 X10'3 (1.8-7.7); NEUTROPHILS % (AUTO) 57.6 % (42-75); PLATELET COUNT 262 X10'3 (140-440); RED BLOOD COUNT 3.84 X10'6 (4.20-5.60); RED CELL DISTRIBUTION WIDTH 14.1 % (11.5-14.5); WHITE BLOOD COUNT 9.3 X10'3 (4.5-11.0)
[2022-11-10 13:02] LABS: ALANINE AMINOTRANSFERASE 14 U/L (12-78); ALBUMIN 3.3 G/DL (3.4-5.0); ALBUMIN/GLOBULIN RATIO 0.9 (1.1-1.5); ALKALINE PHOSPHATASE 79 IU/L (46-116); ANION GAP 4 (8-16); ASPARTATE AMINO TRANSFERASE 20 U/L (10-37); BILIRUBIN,TOTAL 0.3 MG/DL (0.1-1.0); BLOOD UREA NITROGEN 8 MG/DL (7-18); BUN/CREATININE RATIO 9.8 (6.6-38.0); CALCIUM 9.1 MG/DL (8.5-10.1); CHLORIDE 103 MMOL/L (99-107); CREATININE 0.82 MG/DL (0.40-0.90); GLUCOSE 90 MG/DL (70-104); POTASSIUM 3.9 MMOL/L (3.5-5.1); SODIUM 137 MMOL/L (135-145); TOTAL CARBON DIOXIDE 29.8 MMOL/L (24-32); TOTAL PROTEIN 6.9 G/DL (6.4-8.2); eGFR 71 ML/MIN
[2022-11-10] MEDS ORDERED: normal saline 1000ML IV soln IVB ONE (14:40)
[2022-11-10] MEDS ORDERED: ondansetron/PF 4mg/2ml inj IV ONE (14:40)
[2022-11-10] MEDS: morphine 4 MG/ML inj SYRINge IV PRN ×2 (14:50→15:42)
[2022-11-10] MEDS ORDERED: ONDA4TAB12 PO (16:23)
[2022-11-10 16:47] VITALS: BP 151/79
== END 2022-11-10 16:51 | disposition home or self-care (01) ==
LOC: ER 12:24
DX: R07.9 Chest pain, unspecified (principal); R11.0 Nausea; I11.0 Hypertensive heart disease with heart failure; I51.9 Heart disease, unspecified; E78.00 Pure hypercholesterolemia, unspecified; J44.9 Chronic obstructive pulmonary disease, unspecified; G89.29 Other chronic pain; M54.9 Dorsalgia, unspecified; F31.9 Bipolar disorder, unspecified; Z86.14 Personal history of Methicillin resistant Staphylococcus aureus infection; Z88.0 Allergy status to penicillin; Z88.1 Allergy status to other antibiotic agents; Z88.2 Allergy status to sulfonamides; Z88.5 Allergy status to narcotic agent; Z88.6 Allergy status to analgesic agent; Z79.899 Other long term (current) drug therapy; Z79.1 Long term (current) use of non-steroidal anti-inflammatories (NSAID); Z79.2 Long term (current) use of antibiotics
CPT/HCPCS: 36415; 71045; 80053; 83880; 84484; 85025; 93005; 96361; 96374; 96375; 96376; 99285; J2270; J2405; J7030

== ENCOUNTER 2024-03-15 17:39 | Inpatient (IN) | payer MEDICAID ==
[~2024-03-15] VITALS: Ht 167.6 cm; Wt 90.5 kg
[~2024-03-15 17:39] MED LIST changes: +ONDA-243 PO
[2024-03-15 18:48] LABS: BASOPHILS % (AUTO) 0.2 % (0-1); EOSINOPHILS % (AUTO) 0.1 % (0-6); HEMATOCRIT 38.5 % (35.0-45.0); HEMOGLOBIN 12.8 g/dl (12.0-16.0); LYMPHOCYTES % (AUTO) 5.8 % (21-51); MEAN CORPUSCULAR HEMOGLOBIN 29.5 PG (27.0-31.0); MEAN CORPUSCULAR HGB CONC 33.2 g/dL (33.0-36.5); MEAN PLATELET VOLUME 6.8 FL (7.4-10.4); MONOCYTES # (AUTO) 1.2 X10'3 (0-0.9); MONOCYTES % (AUTO) 6.5 % (2-12); NEUTROPHILS # (AUTO) 15.7 X10'3 (1.8-7.7); NEUTROPHILS % (AUTO) 87.4 % (42-75); PLATELET COUNT 335 X10'3 (140-440); RED BLOOD COUNT 4.33 X10'6 (4.20-5.60); RED CELL DISTRIBUTION WIDTH 13.7 % (11.5-14.5)
[2024-03-15 19:10] LABS: ALANINE AMINOTRANSFERASE 17 U/L (12-78); ALBUMIN 3.4 G/DL (3.4-5.0); ALBUMIN/GLOBULIN RATIO 0.8 (1.1-1.5); ALKALINE PHOSPHATASE 90 IU/L (46-116); ANION GAP 6 (8-16); ASPARTATE AMINO TRANSFERASE 12 U/L (10-37); BILIRUBIN,TOTAL 0.6 MG/DL (0.1-1.0); BLOOD UREA NITROGEN 14 MG/DL (7-18); BUN/CREATININE RATIO 13.5 (10.0-20.0); CALCIUM 8.4 MG/DL (8.5-10.1); CHLORIDE 97 MMOL/L (99-107); CREATININE 1.04 MG/DL (0.40-0.90); GLUCOSE 150 MG/DL (70-104); LIPASE 17 U/L (16-77); POTASSIUM 4.3 MMOL/L (3.5-5.1); SODIUM 134 MMOL/L (135-145); TOTAL CARBON DIOXIDE 30.6 MMOL/L (24-32); TOTAL PROTEIN 7.6 G/DL (6.4-8.2); eCRCL 53 ML/MIN; eGFR 54 ML/MIN
[2024-03-15] MEDS ORDERED: iohexol 300mg/ml 100ml inj. ONE (19:26)
[2024-03-15] MEDS: normal saline 1000ML IV soln IVB ONE (20:08)
[2024-03-15 20:46] LABS: BILIRUBIN,URINE NEGATIVE (Neg); CLARITY,URINE CLEAR (Clear); COLOR,URINE YELLOW (Yellow); GLUCOSE, URINE NEGATIVE (Neg); KETONES,URINE NEGATIVE (Neg); LEUKOCYTE ESTERASE ,URINE NEGATIVE (Neg); NITRITES, URINE NEGATIVE (Neg); OCCULT BLOOD,URINE TRACE-INTACT (Neg); PROTEIN,URINE NEGATIVE (Neg); UROBILINOGEN,URINE 0.2 E.U/dL (0.2-1.0)
[2024-03-15 20:48] LABS: URINE HCG NEGATIVE (NEG)
[2024-03-15 20:50] LABS: BACTERIA,URINE NONE SEEN /HPF (Neg); MUCUS STRANDS FEW /LPF (Neg); RBC,URINE 0-2 /HPF (0-2); SQUAMOUS EPITHELIAL CELL,UR FEW /LPF (FEW); UA COLLECTION TYPE OTHER; WBC,URINE NONE SEEN /HPF (0-4)
[2024-03-15] MEDS: acetaminophen 325mg tablet PO ONE (22:01)
[2024-03-15] MEDS: morphine 2 MG/ML inj. syringe IV PRN (22:58)
[2024-03-15] MEDS: metroNIDAZOLE-Flagyl 500mg/NS 100 ML IV ONE (23:41)
[2024-03-15] MEDS: CefTRIAXone/D5W-Rocephin 1gm 50 ML IV ONE (23:42)
[2024-03-16] VITALS (11 sets, daily range): BP systolic 93–139; BP diastolic 41–66; PULSE 62–83; RESP 16–20; TEMP 97–98.7; O2SAT 93–100
[2024-03-16] MEDS ORDERED: magnesium Cl slow-release 64mg tablet PO PRN (00:55)
[2024-03-16] MEDS ORDERED: magnesium sulf-water 2g/50mL 50 ML IV PRN (00:55)
[2024-03-16] MEDS ORDERED: acetaminophen 325mg tablet PO PRN ×2 (00:55)
[2024-03-16] MEDS ORDERED: potassium Cl 20 mEq SR tablet PO PRN ×2 (00:55)
[2024-03-16] MEDS ORDERED: mag hydrox/Alum hydrox/simeth 30ml oral suspension PO PRN (00:55)
[2024-03-16] MEDS ORDERED: magnesium sulf-water 4G/100mL 100 ML IV PRN (00:55)
[2024-03-16] MEDS ORDERED: metoclopramide 5 mg/ml inj IV PRN (00:55)
[2024-03-16] MEDS ORDERED: potassium Cl 40MEQ/1/2NS 520ml 520 ML IV PRN (00:55)
[2024-03-16] MEDS: CefTRIAXone 1000mg IM Kit (w/lidocaine diluent) IM ONE (01:05)
[2024-03-16] MEDS: normal saline 1000ml 1,000 ML IV SCH ×2 (01:53→09:25)
[2024-03-16] MEDS: magnesium hydroxide 30ml (MOM) UD suspension PO PRN (03:53)
[2024-03-16] MEDS: ondansetron/PF 4mg/2ml inj IV PRN (03:55)
[2024-03-16] MEDS: bisacodyl 10mg suppository rectal RC PRN (05:14)
[2024-03-16] MEDS: polyethylene glycol 3350 17gm powd pack PO SCH (06:01)
[2024-03-16] MEDS: K and/or MAG REPLACEMENT MC SCH (07:45)
[2024-03-16] MEDS ORDERED: QUET50TA24 PO (08:29)
[2024-03-16] MEDS: heparin, porcine 5000 units/ml vial SQ SCH (08:40)
[2024-03-16] MEDS ORDERED: polyethylene glycol 3350 17gm powd pack PO PRN (09:30)
[2024-03-16 09:32] LABS: BASOPHILS % (AUTO) 0.1 % (0-1); EOSINOPHILS # (AUTO) 0.1 X10'3 (0-0.9); EOSINOPHILS % (AUTO) 0.8 % (0-6); HEMOGLOBIN 8.1 g/dl (12.0-16.0); LYMPHOCYTES # (AUTO) 1.7 X10'3 (1.1-4.8); LYMPHOCYTES % (AUTO) 12.3 % (21-51); MEAN CORPUSCULAR HEMOGLOBIN 29.8 PG (27.0-31.0); MEAN CORPUSCULAR HGB CONC 33.7 g/dL (33.0-36.5); MEAN CORPUSCULAR VOLUME 88.5 FL (78-98); MEAN PLATELET VOLUME 6.9 FL (7.4-10.4); MONOCYTES # (AUTO) 1.1 X10'3 (0-0.9); MONOCYTES % (AUTO) 7.9 % (2-12); NEUTROPHILS # (AUTO) 11.1 X10'3 (1.8-7.7); NEUTROPHILS % (AUTO) 78.9 % (42-75); PLATELET COUNT 307 X10'3 (140-440); RED BLOOD COUNT 2.71 X10'6 (4.20-5.60); RED CELL DISTRIBUTION WIDTH 13.7 % (11.5-14.5)
[2024-03-16] MEDS: morphine ER 15mg tablet PO SCH (11:29)
[2024-03-16] MEDS: nicotine 21mg patch - 24 hr TD SCH (11:30)
[2024-03-16] MEDS: LIDOcaine 5% patch TP PRN (11:30)
[2024-03-16] MEDS: HYDROcodone/acetaminophen 5mg/325mg tablet PO PRN (14:48)
[2024-03-16] MEDS: morphine 2 MG/ML inj. syringe IV PRN (14:49)
[2024-03-16] MEDS: pantoprazole 40mg Tablet.DR PO SCH (18:35)
[2024-03-16] MEDS: amitriptyline 25mg tablet PO SCH (19:54)
[2024-03-16] MEDS: metroNIDAZOLE-Flagyl 500mg/NS 100 ML IV SCH (19:55)
[2024-03-16] MEDS: tizanidine 4mg tablet PO PRN (19:56)
[2024-03-16] MEDS: atorvastatin 20mg tablet PO SCH (19:56)
[2024-03-16] MEDS: pramipexole 0.25mg tablet PO SCH (19:56)
[2024-03-16] MEDS: QUEtiapine 25mg tablet PO SCH (19:57)
[2024-03-16] MEDS: carvedilol 6.25mg tablet PO SCH (19:58)
[2024-03-16] MEDS: ciprofloxacin lact 400MG/200ML 200 ML IV SCH (21:21)
[2024-03-16] MEDS: clonazePAM 0.5mg tablet PO PRN (21:23)
[2024-03-16] MEDS: albuterol 2.5 MG/3 ML nebule NEB PRN (22:32)
[2024-03-16] MEDS ORDERED: CefTRIAXone/D5W-Rocephin 1gm 50 ML IV SCH (23:00)
[2024-03-17 02:04] VITALS: BP 100/60; PULSE 80
[2024-03-17] MEDS: morphine 2 MG/ML inj. syringe IV PRN (02:05)
[2024-03-17 05:46] VITALS: BP 101/56; PULSE 69
[2024-03-17 06:00] VITALS: BP 85/48; PULSE 65; RESP 18; TEMP 97; O2SAT 96
[2024-03-17 07:15] LABS: BASOPHILS % (AUTO) 0.1 % (0-1); EOSINOPHILS # (AUTO) 0.2 X10'3 (0-0.9); EOSINOPHILS % (AUTO) 2.6 % (0-6); HEMATOCRIT 28.7 % (35.0-45.0); HEMOGLOBIN 9.5 g/dl (12.0-16.0); LYMPHOCYTES # (AUTO) 1.8 X10'3 (1.1-4.8); LYMPHOCYTES % (AUTO) 19.4 % (21-51); MEAN CORPUSCULAR HEMOGLOBIN 29.8 PG (27.0-31.0); MEAN CORPUSCULAR HGB CONC 33.1 g/dL (33.0-36.5); MEAN CORPUSCULAR VOLUME 89.8 FL (78-98); MEAN PLATELET VOLUME 6.5 FL (7.4-10.4); MONOCYTES # (AUTO) 0.7 X10'3 (0-0.9); MONOCYTES % (AUTO) 7.5 % (2-12); NEUTROPHILS # (AUTO) 6.5 X10'3 (1.8-7.7); NEUTROPHILS % (AUTO) 70.4 % (42-75); PLATELET COUNT 210 X10'3 (140-440); RED BLOOD COUNT 3.19 X10'6 (4.20-5.60); RED CELL DISTRIBUTION WIDTH 13.7 % (11.5-14.5); WHITE BLOOD COUNT 9.2 X10'3 (4.5-11.0)
[2024-03-17 07:41] LABS: ALANINE AMINOTRANSFERASE 15 U/L (12-78); ALBUMIN 2.5 G/DL (3.4-5.0); ALBUMIN/GLOBULIN RATIO 0.7 (1.1-1.5); ALKALINE PHOSPHATASE 58 IU/L (46-116); ANION GAP 8 (8-16); ASPARTATE AMINO TRANSFERASE 11 U/L (10-37); BILIRUBIN,TOTAL 0.3 MG/DL (0.1-1.0); BLOOD UREA NITROGEN 8 MG/DL (7-18); BUN/CREATININE RATIO 9.2 (10.0-20.0); CALCIUM 8.1 MG/DL (8.5-10.1); CHLORIDE 103 MMOL/L (99-107); CHOL/HDL RATIO 3.2 (0.00-4.99); CHOLESTEROL 103 MG/DL (0-200); CREATININE 0.87 MG/DL (0.40-0.90); GLUCOSE 130 MG/DL (70-104); HDL CHOLESTEROL 32 MG/DL (35-60); LDL CHOLESTEROL 59 MG/DL (50-100); MAGNESIUM 2.2 MG/DL (1.5-2.4); PHOSPHORUS 2.8 MG/DL (2.3-4.5); POTASSIUM 3.8 MMOL/L (3.5-5.1); SODIUM 139 MMOL/L (135-145); TOTAL PROTEIN 5.9 G/DL (6.4-8.2); TRIGLYCERIDES 89 MG/DL (20-135); eCRCL 64 ML/MIN; eGFR 66 ML/MIN
[2024-03-17 08:26] VITALS: RESP 18; O2SAT 96
[2024-03-17] MEDS: aspirin 81mg, enteric-coated 1 TAB TABLET.DR PO SCH (08:26)
[2024-03-17 10:00] VITALS: BP 100/63; PULSE 68; RESP 18; TEMP 97.2; O2SAT 97
[2024-03-17] MEDS ORDERED: METR-159 PO (11:14)
[2024-03-17] MEDS ORDERED: CIPR-259 PO (11:14)
== END 2024-03-17 13:10 | disposition home or self-care (01) | DRG 249 ==
LOC: ER 17:40 → ED HOLD 03-16 00:57 → EDBEDREQ 03-16 01:57 → ORTHO 4S 03-16 03:22
PROVIDERS: ADMIT Internal Medicine Critical Care Medicine; ATTEND Internal Medicine
PROC: BW211ZZ Computerized Tomography (CT Scan) of Abdomen and Pelvis using Low Osmolar Contrast (ICD-10-PCS; principal; 2024-03-15)
DX: K52.9 Noninfective gastroenteritis and colitis, unspecified (principal); I13.0 Hypertensive heart and chronic kidney disease with heart failure and stage 1 through stage 4 chronic kidney disease, or unspecified chronic kidney disease; I50.9 Heart failure, unspecified; E78.00 Pure hypercholesterolemia, unspecified; I25.10 Atherosclerotic heart disease of native coronary artery without angina pectoris; J44.9 Chronic obstructive pulmonary disease, unspecified; F32.A Depression, unspecified; F17.210 Nicotine dependence, cigarettes, uncomplicated; N18.30 Chronic kidney disease, stage 3 unspecified; E66.9 Obesity, unspecified; F41.9 Anxiety disorder, unspecified; G89.4 Chronic pain syndrome; Z68.32 Body mass index [BMI] 32.0-32.9, adult; M54.2 Cervicalgia; K57.32 Diverticulitis of large intestine without perforation or abscess without bleeding; K59.00 Constipation, unspecified; G43.909 Migraine, unspecified, not intractable, without status migrainosus; M54.9 Dorsalgia, unspecified; Z88.1 Allergy status to other antibiotic agents; Z91.012 Allergy to eggs; Z88.8 Allergy status to other drugs, medicaments and biological substances; Z79.899 Other long term (current) drug therapy; I25.2 Old myocardial infarction; Z95.1 Presence of aortocoronary bypass graft; Z82.0 Family history of epilepsy and other diseases of the nervous system; Z80.1 Family history of malignant neoplasm of trachea, bronchus and lung; Z80.8 Family history of malignant neoplasm of other organs or systems; Z90.710 Acquired absence of both cervix and uterus; Z90.722 Acquired absence of ovaries, bilateral; Z80.3 Family history of malignant neoplasm of breast
CPT/HCPCS: 36415; 74177; 80053; 80061; 81001; 81025; 83036; 83605; 83690; 83735; 84100; 84132; 84145; 84484; 85025; 85651; 86140; 87040; 87045; 87046; 87081; 89055; 94640; 94760; G0378; J0696; J0744; J1644; J2270; J2405; J3490; J7030; Q9967

== ENCOUNTER 2025-03-07 10:39 | Inpatient (IN) | payer MEDICAID ==
[~2025-03-07] VITALS: Ht 167.6 cm; Wt 88.6 kg
[~2025-03-07 10:39] MED LIST changes: -QUET200T31 PO; +QUET50TA24 PO
--- NOTE | 2025-03-07 10:49 | ELECTROCARDIOGRAPH REPORT ---
[facility] Test Date: 2025-03-07 Test Time: 10:44:29 Pat Name: GWENDOLYN BEDOLLA Department: EMERGENCY ROOM Room: [place] [address] Gender: F Survey Questionnaire Designer: Alexandrea : 1960 Requested By: NANCY DURÁN Order Number: [id number] Reading MD: Dr. Glenn Hudson Measurements Intervals [place] Rate: 83 P: 57 KS: 139 QRS: 67 QRSD: 91 T: 14 QT: 387 QTc: 455 Interpretive Statements Sinus rhythm Low voltage, precordial leads Borderline repolarization abnormality Baseline wander in lead(s) II,III,aVF Electronically Signed On 03-07-2025 18:22:[address] Glenn Hudson Please click the below link to view image of tracing.
[2025-03-07 11:07] LABS: BASOPHILS # (AUTO) 0.1 X10'3 (0-0.2); BASOPHILS % (AUTO) 1.1 % (0-1); EOSINOPHILS # (AUTO) 0.1 X10'3 (0-0.9); EOSINOPHILS % (AUTO) 1.6 % (0-6); HEMATOCRIT 37.6 % (35.0-45.0); HEMOGLOBIN 13.1 g/dl (12.0-16.0); LYMPHOCYTES # (AUTO) 2.9 X10'3 (1.1-4.8); LYMPHOCYTES % (AUTO) 32.1 % (21-51); MEAN CORPUSCULAR HEMOGLOBIN 30.1 PG (27.0-31.0); MEAN CORPUSCULAR HGB CONC 34.9 g/dL (33.0-36.5); MEAN CORPUSCULAR VOLUME 86.2 FL (78-98); MEAN PLATELET VOLUME 6.3 FL (7.4-10.4); MONOCYTES # (AUTO) 0.7 X10'3 (0-0.9); MONOCYTES % (AUTO) 7.6 % (2-12); NEUTROPHILS # (AUTO) 5.2 X10'3 (1.8-7.7); NEUTROPHILS % (AUTO) 57.6 % (42-75); PLATELET COUNT 364 X10'3 (140-440); RED BLOOD COUNT 4.36 X10'6 (4.20-5.60); RED CELL DISTRIBUTION WIDTH 14.8 % (11.5-14.5)
--- NOTE | 2025-03-07 11:16 | RADIOLOGY REPORT ---
EXAM: DI CHEST,SINGLE VIEW Indication: CP Technique: Single frontal view of the chest was obtained Comparison: CHEST,SINGLE VIEW on DOS: 11/10/22, CHEST,SINGLE VIEW on DOS: 10/28/22, CHEST,SINGLE VIEW on DOS: 02/03/22, CHEST,SINGLE VIEW on DOS: 12/08/21 FINDINGS: Lines and Tubes: None Lungs: No focal consolidation. Pleura: No effusion. No pneumothorax. Cardiomediastinal contours: Unremarkable Bones: No acute osseous abnormality. IMPRESSION: No acute cardiopulmonary disease.
[2025-03-07 11:28] LABS: ALBUMIN 3.7 G/DL (3.4-5.0); ANION GAP 6 (8-16); BLOOD UREA NITROGEN 7 MG/DL (7-18); BUN/CREATININE RATIO 7.8 (10.0-20.0); CALCIUM 8.7 MG/DL (8.5-10.1); CHLORIDE 102 MMOL/L (99-107); GLUCOSE 102 MG/DL (70-104); POTASSIUM 3.7 MMOL/L (3.5-5.1); PRO BRAIN NATRIURETIC PEPTIDE 176 PG/ML (0-125); SODIUM 141 MMOL/L (135-145); TOTAL CARBON DIOXIDE 32.9 MMOL/L (24-32); eCRCL 61 ML/MIN; eGFR 63 ML/MIN
--- NOTE | 2025-03-07 14:23 | ELECTROCARDIOGRAPH REPORT ---
[facility] Test Date: 2025-03-07 Test Time: 14:21:16 Pat Name: GWENDOLYN BEDOLLA [id number] Room: [place] [address] Gender: F Cattle Inspector: : 1960 Requested By: TARA BARAJAS Order Number: [id number] Reading MD: Dr. Glenn Hudson Measurements Intervals [place] Rate: 85 P: 61 ID: [id number] QRS: 62 QRSD: 106 T: 73 QT: 352 QTc: 419 Interpretive Statements Sinus rhythm Low voltage, precordial leads Abnormal R-wave progression, late transition Borderline T abnormalities, lateral leads Electronically Signed On 03-07-2025 18:22:[address] Glenn Hudson Please click the below link to view image of tracing.
[2025-03-07] MEDS: HYDROcodone/acetaminophen 10/325mg tab PO ONE (14:35)
--- NOTE | 2025-03-07 14:44 | Physician Documentation ---
History of Present Illness ~ Chief Complaint: Chest Pain Stated Complaint: CHEST PRESSURE Time Seen by MD: 10:56 OK to notify your PCP?: Yes Primary Medical Doctor: BLESSING Little HPI 64-year-old female patient with a history of coronary artery disease status for CABG in 2011 and also history of hypertension and a smoker with a chronic pain syndrome and a past history of meth and ETOH abuse 40 years ago came to the emergency room because she woke up at 03:00 feeling deadly ill and super nauseated without any vomiting and chest discomfort. It is like pressure in the chest and also left arm painful. Her blood pressure according to the patient is 223/116 and then it went down all the way down to 67/34. She does smoke half a pack a day and she smoked weed occasionally. She took 30 mg of morphine twice a day and Aurora 06/13/2025 one twice a day for her chronic pain. Rate is unusual for her that she has chest pressure. Medication Reconciliation Allergies: Coded Allergies: egg (Verified Allergy, Severe, ANAPHYLAXIS, THROAT CLOSES, 03/07/25) venlafaxine (Verified Allergy, Intermediate, RASH, 03/07/25) Penicillins (Verified Allergy, Mild, RASH AND OR N/V, PT CANT REMEMBER WHICH, 03/07/25) erythromycin base (Verified Allergy, Mild, RASH AND/OR N/V PATIENT DOESN'T REMEMBER WHICH, 03/07/25) levofloxacin (Verified Allergy, Unknown, PATIENT CANT REMEMBER, 03/07/25) baclofen (Verified Adverse Reaction, Severe, SEVERE VOMITING, 03/07/25) risperidone (Verified Adverse Reaction, Intermediate, SEVERE N/V, 12/08/21) tramadol (Verified Adverse Reaction, Mild, N/V, 12/08/21) Scheduled Albuterol Sulfate (Ventolin Hfa), 2 PUFFS PO Q4HPRN, (Reported) Amitriptyline Hcl (Amitriptyline Hcl), 1 TAB PO HS, (Reported) Aspirin (Aspir-Low), 1 TAB PO DAILY, (Reported) Atorvastatin Calcium (Atorvastatin Calcium), 1 TABLET PO HS, (Reported) Carvedilol (Carvedilol), 1 TAB PO BID, (Reported) Cholecalciferol (Vitamin D3) (Vitamin D3), 1 CAP PO DAILY, (Reported) Morphine Sulfate (Oramorph Sr), 30 MG PO BID@0600,1600, (Reported) Nicotine 21 MG Patch* (Habitrol 21 MG Patch*), 1 PATCH TD DAILY Pantoprazole Sodium (PROTONIX tablet), 1 TAB PO QDD, (Reported) Pramipexole Di-Hcl (MIRAPEX tablet), 0.25 MG PO HS, (Reported) Quetiapine Fumarate (Quetiapine Fumarate), 1 TAB PO HS, (Reported) Tiotropium Br/Olodaterol HCl (Stiolto Respimat Inhal [place]), 2 PUFFS INH DAILY, (Reported) Scheduled PRN Clonazepam (Clonazepam), 1 TAB PO BID PRN for anxiety, (Reported) Hydrocodone Bit/Acetaminophen (Hydrocodon-Acetaminophn 10-325 tablet), 1 TAB PO TID PRN for pain, (Reported) Lidocaine (Lidocaine), 1 PATCH TOP DAILY PRN for LOW BACK PAIN, (Reported) Nitroglycerin SL* (Nitrostat SL*), 1 TAB SL Q5MIN PRN for Chest pain Q5min PRNx3-call MD, (Reported) ONDANSETRON ODT 4mg tablet (Ondansetron Odt), 1 TABLET PO Q6H PRN for NAUSEA Promethazine HCl (Promethazine HCl), 1 TAB PO Q8H PRN for nausea/vomiting, (Reported) Tizanidine Hcl (Zanaflex), 1 TAB PO TID PRN for muscle spasms, (Reported) Past Medical History Past Medical History: Migraine, Coronary Artery Disease, Congestive Heart Failure, High Cholesterol, Myocardial Infarction, COPD, Liver Disease, Chronic Back Pain, Anxiety, Depression Past Surgical History: coronary bypass surgery, orthopedic surgeries Patient History: Alzheimer's disease GRANDFATHER OR GRANDMOTHER (GRANDMOTHER (MOMS MOM)), , Age: 60 years and older Asbestos FATHER, Name: MARLENE BEDOLLA, , Age: 60 years and older ETOH GRANDFATHER OR GRANDMOTHER (GRANDPA (MOMS DAD)), , Age: 60 years and older GRANDFATHER OR GRANDMOTHER, Name: GRANDMA (GRANDMA (DADS MOM)), , Age: 60 years and older FAMILY/OTHER, Name: ALEJANDRA, , Age: 56 Endometriosis CHILD, Name: AMA LOCKHART, Age: 34 FH: back pain FAMILY/OTHER, Name: DANIEL, Age: 50 FH: breast cancer MOTHER, Name: SLAVA PATINO, , Age: 83 FH: cancer FAMILY/OTHER, Name: MARLENE, , Age: 50 FH: epilepsy FAMILY/OTHER, Name: SEN, Age: 62 FH: lung cancer MOTHER, Name: SLAVA PATINO, , Age: 83 FH: lymphoma FAMILY/OTHER, Name: SOCORRO, Age: 47 FH: polycystic ovary CHILD, Name: AMA LOCKHART, Age: 34 FH: skin cancer FAMILY/OTHER, Name: GLORIA, Age: 45 FAMILY/OTHER, Name: CLARY, Age: 60 FH: spina bifida FAMILY/OTHER, Name: MARLENE, , Age: [place] Hepatitis A FAMILY/OTHER, Name: MASON, , Age: 29 Hepatitis B FAMILY/OTHER, Name: MASON, , Age: 29 Hepatitis C FAMILY/OTHER, Name: MASON, , Age: 29 Alcohol Use: None Drug Use: none, other Lives with: Other Lives In: Home Occupation: unemployed Review of Systems ROS As stated above in the HPI, otherwise all systems are reviewed and negative. Physical Exam Vital Signs: Temperature: 97.5, Source: Temporal, Heart Rate: 84, Respiratory Rate: 15, BP: 135/94, Pulse Oximetry: 95, Weight: 88.640 Oxygen Flow Rate: 0 Physical Exam Vital signs reviewed and they are well within normal range and the patient is afebrile. Const: When I saw the patient the patient is comfortable and then her pain came back. Head: Atraumatic Eyes: Normal Conjunctiva ENT: Normal External Ears, Nose and Mouth. Moist mucous membrane Neck: Full range of motion. No meningismus Resp: Clear to auscultation bilaterally. Normal work of breathing Cardio: Regular rate and rhythm, no murmurs. Skin well perfused Abd: Soft, non-tender, non-distended. Normal bowel sounds. No rebound or guarding Skin: No petechiae or rashes. Warm and dry Back: No midline or flank tenderness Ext: No cyanosis, or edema Neuro: Awake and alert Psych: Normal Mood and Affect Progress Results/Orders Results/Orders Completed Orders - TARA BARAJAS MD Electrocardiogram (03/07/25 14:13) Hydrocodone/Apap 10/325 (Aurora 10/325mg (03/07/25 14:30) Medications Received in ER Medications (Trade) Dose Ordered Sig/Julianne Route PRN Reason Start Time Stop Time Status Last Admin Dose Admin (Aurora 10/325mg tab) 1 tab ONCE ONCE PO 03/07/25 14:30 03/07/25 14:31 DC 03/07/25 14:35 1 TAB Vital Signs 03/07/25 03/07/25 03/07/25 03/07/25 10:48 12:00 13:00 14:01 Temp 97.5 Pulse 89 81 75 84 Resp 16 16 22 14 B/P (MAP) 171/98 138/74 (95) 137/65 (89) 135/94 (108) Pulse Ox 99 96 95 95 O2 Flow Rate 0 0 0 0 03/07/25 03/07/25 14:17 14:35 Resp 19 15 B/P (MAP) Laboratory Tests Test 03/07/25 10:50 03/07/25 12:26 03/07/25 13:30 White Blood Count 9.0 Red Blood Count 4.36 Hemoglobin 13.1 Hematocrit 37.6 Mean Corpuscular Volume 86.2 Mean Corpuscular Hemoglobin 30.1 Mean Corpuscular Hemoglobin Concent 34.9 Red Cell Distribution Width 14.8 H Platelet Count 364 Mean Platelet Volume 6.3 L Neutrophils (%) (Auto) 57.6 Lymphocytes (%) (Auto) 32.1 Monocytes (%) (Auto) 7.6 Eosinophils (%) (Auto) 1.6 Basophils (%) (Auto) 1.1 H Neutrophils # (Auto) 5.2 Lymphocytes # (Auto) 2.9 Monocytes # (Auto) 0.7 Eosinophils # (Auto) 0.1 Basophils # (Auto) 0.1 CBC Comment Sodium Level 141 Potassium Level 3.7 Chloride Level 102 Carbon Dioxide Level 32.9 H Anion Gap 6 L Blood Urea Nitrogen 7 Creatinine 0.90 Estimated GFR/1.73 m2 63 BUN/Creatinine Ratio 7.8 L Glucose Level 102 Calcium Level 8.7 Troponin I High Sensitivity 43 36 40 Pro-B-Type Natriuretic Peptide 176 H Albumin 3.7 Chemistry Comments Troponin I High Sens Percent Delta 16 11 Troponin I Hi Sens Absolute Change -7 4 Heart Score: Heart Score Response (Comments) Value History Moderate Suspicious 1 EKG Normal 0 Age 45-64 1 Risk Factors >3 or Hx ASHD 2 Total 4 Medical Decision Making Findings During the physical examination, the findings suggestive of acute life- threatening condition such as JVD, tracheal deviation, acidotic breathing, noisy stridorous breath sounds, pulses paradoxus, muffled heart sounds, unequal breath sounds, abdominal rigidity and rebound tenderness, focal neurological deficits, cool clammy skin, severe hypotension, severe tachycardia or bradycardia are absent. Interpretation of the patient's EKG done at 14:21 by me shows sinus rhythm at a rate of 85 with normal axis low voltage normal intervals and no acute ischemic changes. CBC showed WBC 9 H and H13.1 and 37.8 and platelets 364. Sodium 141 potassium 3.7 chloride 102 bicarb 32.9 BUN seven creatinine 0.9 and glucose 102. Her troponins are 43/36/40 Heart score is four. Even though her troponin is still within normal range because of this chest pain with coronary artery disease I like to admit the patient for further evaluation and treatment. DISCLAIMER Inadvertent spelling and grammatical errors,inadvertent communications tower climber errors,syntax errors, grammatical errors, and spelling errors are likely due to EMR/dictation software use and do not reflect on the overall quality of patient care. Note that the electronic time recorded on this note does not necessarily reflect the actual time of the patient encounter. Departure Disposition: 09 ADMITTED INPATIENT Impression: Primary Impression: Acute chest pain Referrals: NO PRIMARY CARE PROVIDER (PCP) Signature Scribe Signature: None Attestation: My dictation TARA BARAJAS MD Mar 07, 2025 14:44
[2025-03-07] MEDS ORDERED: magnesium sulf-water 4G/100mL 100 ML IV PRN (15:45)
[2025-03-07] MEDS ORDERED: magnesium Cl slow-release 64mg tablet PO PRN (15:45)
[2025-03-07] MEDS ORDERED: HYDROmorphone/PF 0.2 MG/ML SYRINGE IV PRN (15:45)
[2025-03-07] MEDS ORDERED: acetaminophen 325mg tablet PO PRN ×2 (15:45)
[2025-03-07] MEDS ORDERED: potassium Cl 40MEQ/1/2NS 520ml 520 ML IV PRN (15:45)
[2025-03-07] MEDS ORDERED: magnesium sulf-water 2g/50mL 50 ML IV PRN (15:45)
[2025-03-07] MEDS ORDERED: potassium Cl 20 mEq SR tablet PO PRN ×2 (15:45)
[2025-03-07] MEDS ORDERED: metoprolol tartrate 1mg/ml inj IV PRN (15:50)
[2025-03-07] MEDS ORDERED: aminophylline 250mg/10ml inj. IV PRN (15:50)
[2025-03-07 17:00] VITALS: BP 153/77; RESP 17; TEMP 97.7; O2SAT 93
[2025-03-07] MEDS: pantoprazole 40mg Tablet.DR PO SCH (17:06)
[2025-03-07] MEDS: normal saline 1000ml 1,000 ML IV SCH (17:06)
[2025-03-07] MEDS: HYDROcodone/acetaminophen 10/325mg tab PO PRN (17:46)
[2025-03-07 17:57] VITALS: RESP 17; O2SAT 93
[2025-03-07 18:00] VITALS: BP 151/78; PULSE 86; RESP 14; TEMP 97.3; O2SAT 95
[2025-03-07] MEDS: nicotine 21mg patch - 24 hr TD SCH (19:35)
[2025-03-07] MEDS ORDERED: tizanidine 4mg tablet PO PRN (19:35)
[2025-03-07] MEDS ORDERED: LIDOcaine 5% patch TP PRN (19:35)
[2025-03-07] MEDS ORDERED: nitroGLYCERIN 0.4mg SUBLingual tab SL PRN (19:35)
[2025-03-07 20:00] VITALS: RESP 20; O2SAT 95
--- NOTE | 2025-03-07 20:07 | HISTORY AND PHYSICAL ---
History & Physical Providers to CC ~ History of Present Illness Reason for Admit\\Complaint: Feeling ill and having chest pain History of Present Illness 64-year-old female patient with a past medical history of CABG in 2013, multiple colonic polyps and chronic pain syndrome who presented to the hospital with complaints of chest pain since last five days. She mentioned recently she lost her best friend and celebrated event " celebration of life" for her friend. Chest pain is over the middle of the chest it is like pressure sensation she feels it is radiating towards her back she does smoke half pack of cigarettes per day and use cannabis off and on but denied use of any alcohol. Patient has old history of pneumonia. She gets off and on acid reflux symptoms. She does have chronic anxiety issues. She has noticed lot of fluctuation in her blood pressure sometimes it is very high but then immediately comes down to very low levels. She follows in [facility] in [place]. Off and on noticed mild swelling over the ankles bilaterally. Patient does have chronic pain syndrome for which medications are prescribed from [facility] provider. Per patient she was seen by Dr. Conde couple of years back. Allergies: Coded Allergies: egg (Verified Allergy, Severe, ANAPHYLAXIS, THROAT CLOSES, 03/07/25) venlafaxine (Verified Allergy, Intermediate, RASH, 03/07/25) Penicillins (Verified Allergy, Mild, RASH AND OR N/V, PT CANT REMEMBER WHICH, 03/07/25) erythromycin base (Verified Allergy, Mild, RASH AND/OR N/V PATIENT DOESN'T REMEMBER WHICH, 03/07/25) levofloxacin (Verified Allergy, Unknown, PATIENT CANT REMEMBER, 03/07/25) baclofen (Verified Adverse Reaction, Severe, SEVERE VOMITING, 03/07/25) risperidone (Verified Adverse Reaction, Intermediate, SEVERE N/V, 12/08/21) tramadol (Verified Adverse Reaction, Mild, N/V, 12/08/21) Home Medications Home Medications Active Ondansetron Odt (Ondansetron HCl) 4 Mg Tab.rapdis 1 Tablet PO Q6H PRN Habitrol 21 MG Patch* (Nicotine) 1 Each Patch.td24 1 Patch TD DAILY Reported Amitriptyline Hcl 25 Mg Tablet 1 Tab PO HS Quetiapine Fumarate 50 Mg Tablet 1 Tab PO HS Carvedilol 12.5 Mg Tablet 1 Tab PO BID Lidocaine 1 Each Adh..patch 1 Patch TOP DAILY PRN Stiolto Respimat Inhal [place] (Tiotropium Br/Olodaterol HCl) 4 Gm Mist.inhal 2 Puffs INH DAILY Zanaflex (Tizanidine Hcl) 4 Mg Tablet 1 Tab PO TID PRN Promethazine HCl 25 Mg Tablet 1 Tab PO Q8H PRN 5 Days MIRAPEX tablet (Pramipexole Di-Hcl) 0.25 Mg Tablet 0.25 Mg PO HS Vitamin D3 (Cholecalciferol (Vitamin D3)) 50 Mcg Capsule 1 Cap PO DAILY 30 Days Atorvastatin Calcium 40 Mg Tablet 1 Tablet PO HS Clonazepam 0.5 Mg Tab.rapdis 1 Tab PO BID PRN MDD 2 Tablet(s) 30 Days PROTONIX tablet (Pantoprazole Sodium) 40 Mg Tablet.dr 1 Tab PO QDD 30 Days Oramorph Sr (Morphine Sulfate) 30 Mg Tablet.sa 30 Mg PO BID@0600,1600 Nitrostat SL* (Nitroglycerin) 0.4 Mg Tablet 1 Tab SL Q5MIN PRN Ventolin Hfa (Albuterol Sulfate) 18 Gm Hfa.aer.ad 2 Puffs PO Q4HPRN Aspir-Low (Aspirin) 81 Mg Tablet.dr 1 Tab PO DAILY Hydrocodon-Acetaminophn 10-325 tablet (Acetaminophen/Hydrocodone Bitart) 1 Each Tablet 1 Tab PO TID PRN Past Medical History Past Medical History Severe neck and back pain from an injury, status post CABG Past Surgical History Surgical History Comment Patient reports that she has had two abdominal surgeries, the hysterectomy with bilateral salpingo-oophorectomy had led to a complication of left colon scarring and she also reports an 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 Family History Family History: Alzheimer's disease GRANDFATHER OR GRANDMOTHER (GRANDMOTHER (MOMS MOM)), , Age: 60 years and older Asbestos FATHER, Name: MARLENE STRAUSSER, , Age: 60 years and older ETOH GRANDFATHER OR GRANDMOTHER (GRANDPA (MOMS DAD)), , Age: 60 years and older GRANDFATHER OR GRANDMOTHER, Name: GRANDMA (GRANDMA (DADS MOM)), , Age: 60 years and older FAMILY/OTHER, Name: ALEJANDRA, , Age: 56 Endometriosis CHILD, Name: AMA LOCKHART, Age: 34 FH: back pain FAMILY/OTHER, Name: DANIEL, Age: 50 FH: breast cancer MOTHER, Name: SLAVA PATINO, , Age: 83 FH: cancer FAMILY/OTHER, Name: MARLENE, , Age: 50 FH: epilepsy FAMILY/OTHER, Name: SEN, Age: 62 FH: lung cancer MOTHER, Name: SLAVA PATINO, , Age: 83 FH: lymphoma FAMILY/OTHER, Name: SOCORRO, Age: 47 FH: polycystic ovary CHILD, Name: AMA LOCKHART, Age: 34 FH: skin cancer FAMILY/OTHER, Name: GLORIA, Age: 45 FAMILY/OTHER, Name: CLARY, Age: 60 FH: spina bifida FAMILY/OTHER, Name: MARLENE, , Age: [place] Hepatitis A FAMILY/OTHER, Name: MASON, , Age: 29 Hepatitis B FAMILY/OTHER, Name: MASON, , Age: 29 Hepatitis C FAMILY/OTHER, Name: MASON, , Age: 29 Exam Vitals: Vital Signs Date Time Temp Pulse Resp B/P (MAP) Pulse Ox O2 Delivery O2 Flow Rate FiO2 03/07/25 17:57 17 93 Room Air 03/07/25 17:00 97.7 153/77 (102) 03/07/25 14:01 84 0 General: General-patient not in any acute distress, alert awake oriented, obese, chronically ill-appearing HEENT-atraumatic normocephalic, neck supple without elevated JVD, no thyromegaly or carotid bruit. No lymphadenopathy bilaterally. Eyes-no icterus or pallor seen in eyes Chest-clear to auscultation bilaterally, breathing nonlabored no tachypnea, no wheezing, no crepitation, no crackles. Heart-S1-S2 normal, regular heart rate no murmur Abdomen bowel sounds positive on auscultation, soft nondistended nontender no guarding, no rigidity Skin no active skin rash/signs of chronic hyperpigmentation present over lower extremity Neurology-grossly intact, nonfocal alert awake oriented Extremity- no pedal edema able to move all 4 extremities Psychiatry - patient is not confused or agitated cooperated during physical examination Diagnostic Data Last Recorded Lab Results: 03/07/25 1050 03/07/25 1050 Additional Plan 1. Acute chest pain rule out acute coronary syndrome- ordered echocardiogram and Lexiscan we will keep the patient NPO after midnight. 2. History of CAD status post CABG: will Continue home medications of aspirin statin 3. Chronic pain syndrome: Chronic neck and back pain Home medications include morphine and [place] 4. Patient is strongly advised to stop tobacco and cannabis and risks explained. 5. Obesity: BMI 32.1 Weight loss recommended in outpatient setting 6. Code status discussed with the patient patient wishes to stay full Patient's current condition is guarded we will continue to follow patient in AM . We will do medication reconciliation once updated in electronic record system by pharmacist or nursing staff. . Date of Service: Mar 07, 2025 Billing Provider: DEBRA MAURICE MD Common Visit Codes: 73123-[id number] INP/OBS CARE (HIGH) Secondary Visit Codes: 81690-LUPSD CHNG SMOKING 3-10M, [id number] CARE PLAN 30 MINUTES DEBRA MAURICE MD Mar 07, 2025 20:07
[2025-03-07] MEDS: carVEDilol 12.5mg tablet PO SCH (20:11)
[2025-03-07] MEDS: lisinopril 20mg tablet PO SCH (20:12)
[2025-03-07] MEDS: nitroGLYCERIN 0.4mg SUBLingual tab SL PRN (20:48)
[2025-03-07] MEDS: aspirin 81mg, enteric-coated 1 TAB TABLET.DR PO SCH (21:17)
[2025-03-07] MEDS: pramipexole 0.25mg tablet PO SCH (21:17)
[2025-03-07] MEDS: QUEtiapine 25mg tablet PO SCH (21:17)
[2025-03-07] MEDS: atorvastatin 20mg tablet PO SCH (21:17)
[2025-03-07] MEDS: heparin, porcine 5000 units/ml vial SQ SCH (21:18)
[2025-03-07] MEDS: amitriptyline 25mg tablet PO SCH (21:18)
[2025-03-07] MEDS: HYDROmorphone inj. 0.5 MG/0.5 ML DISP.SYRIN IV PRN (21:26)
[2025-03-07] MEDS: nitroGLYCERIN 0.4mg/hour patch TD ONE (21:59)
[2025-03-07 22:00] VITALS: BP 150/87; PULSE 80; RESP 19; TEMP 97.9; O2SAT 96
[2025-03-08] VITALS (16 sets, daily range): BP systolic 96–162; BP diastolic 44–96; PULSE 75–106; RESP 11–20; TEMP 96.7–99.4; O2SAT 92–96
[2025-03-08] MEDS: morphine 2 MG/ML inj. syringe IV ONE (01:45)
--- NOTE | 2025-03-08 02:02 | ELECTROCARDIOGRAPH REPORT ---
[facility] Test Date: 2025-03-08 Test Time: 02:00:48 Pat Name: GWENDOLYN BEDOLLA Department: [facility] Patient ID: [facility]-[id number] Room: [place] [address] A Gender: F Roller Repairer: : 1960 Requested By: MUNIR PEREZ Order Number: [id number] Reading MD: Dr. Chetna Conde Measurements Intervals [place] Rate: 88 P: 56 VA: 136 QRS: 38 QRSD: 73 T: 0 QT: 448 QTc: 542 Interpretive Statements Sinus rhythm Low voltage, precordial leads Nonspecific T abnormalities, diffuse leads Prolonged QT interval Electronically Signed On 03-08-2025 7:22:[address] Chetna Conde Please click the below link to view image of tracing.
[2025-03-08] MEDS: ondansetron/PF 4mg/2ml inj IV PRN (02:27)
[2025-03-08] MEDS: metoprolol tartrate 50mg tablet PO ONE (02:35)
[2025-03-08] MEDS: HYDROmorphone 1 mg/ml syringe IV ONE (02:35)
[2025-03-08 03:07] LABS: BASOPHILS # (AUTO) 0.1 X10'3 (0-0.2); EOSINOPHILS # (AUTO) 0.2 X10'3 (0-0.9); EOSINOPHILS % (AUTO) 2.1 % (0-6); HEMOGLOBIN 11.6 g/dl (12.0-16.0); LYMPHOCYTES # (AUTO) 2.7 X10'3 (1.1-4.8); LYMPHOCYTES % (AUTO) 36.4 % (21-51); MEAN CORPUSCULAR HEMOGLOBIN 29.4 PG (27.0-31.0); MEAN CORPUSCULAR HGB CONC 34.2 g/dL (33.0-36.5); MEAN CORPUSCULAR VOLUME 85.9 FL (78-98); MEAN PLATELET VOLUME 6.5 FL (7.4-10.4); MONOCYTES # (AUTO) 0.6 X10'3 (0-0.9); MONOCYTES % (AUTO) 7.9 % (2-12); NEUTROPHILS # (AUTO) 3.9 X10'3 (1.8-7.7); NEUTROPHILS % (AUTO) 52.6 % (42-75); PLATELET COUNT 285 X10'3 (140-440); RED BLOOD COUNT 3.96 X10'6 (4.20-5.60); RED CELL DISTRIBUTION WIDTH 15.1 % (11.5-14.5); WHITE BLOOD COUNT 7.4 X10'3 (4.5-11.0)
[2025-03-08 03:11] LABS: URINE AMPHETAMINE SCREEN NEGATIVE (Neg); URINE BARBITUATE SCREEN NEGATIVE (Neg); URINE BENZODIAZEPINES SCREEN NEGATIVE (Neg); URINE CANNABINOID SCREEN NEGATIVE (Neg); URINE COCAINE SCREEN NEGATIVE (Neg); URINE METHADONE SCREEN NEGATIVE (Neg); URINE OPIATE SCREEN POSITIVE (Neg); URINE PHENCYCLIDINE SCREEN NEGATIVE (Neg)
[2025-03-08 03:28] LABS: ALANINE AMINOTRANSFERASE 16 U/L (12-78); ALBUMIN 3.1 G/DL (3.4-5.0); ALBUMIN/GLOBULIN RATIO 0.9 (1.1-1.5); ALKALINE PHOSPHATASE 70 IU/L (46-116); ANION GAP 5 (8-16); ASPARTATE AMINO TRANSFERASE 14 U/L (10-37); BILIRUBIN,TOTAL 0.2 MG/DL (0.1-1.0); BLOOD UREA NITROGEN 8 MG/DL (7-18); BUN/CREATININE RATIO 8.6 (10.0-20.0); CALCIUM 8.5 MG/DL (8.5-10.1); CHLORIDE 103 MMOL/L (99-107); CREATININE 0.93 MG/DL (0.40-0.90); GLUCOSE 125 MG/DL (70-104); POTASSIUM 3.9 MMOL/L (3.5-5.1); SODIUM 141 MMOL/L (135-145); TOTAL CARBON DIOXIDE 33.3 MMOL/L (24-32); TOTAL PROTEIN 6.5 G/DL (6.4-8.2); eCRCL 59 ML/MIN; eGFR 61 ML/MIN
[2025-03-08] MEDS ORDERED: iohexol 350MG/ML 100ml bottle IV ONE (04:19)
[2025-03-08] MEDS: normal saline 1000ml 1,000 ML IV ONE (05:08)
[2025-03-08 05:29] LABS: D-DIMER 1.14 MG/L FEU (0-0.50)
--- NOTE | 2025-03-08 05:34 | RADIOLOGY REPORT ---
History: chest pain-non anginal Comparison: None TECHNIQUE: Using a slice CT scanner volumetric data acquisition of chest, abdomen and pelvis was obta ined following intravenous administration of intravenous 100 ml contrast without any reported adverse effects. Axial images were reconstructed and additional sagittal and coronal images were reformatted . 3D/MIP images were performed and reviewed for reporting. Radiation Dose Information: CT Dose: CTDI volume is 25 mGy. Dose-length product is 2017.26 mGy*cm Findings: Vascular: Aortic measurements: Annulus 33 mm, ascending aorta 30 mm (coronal plane), aortic arch 20 mm sagitta l plane, descending aorta 21 mm, aortic hiatus 17 mm, suprarenal abdominal aorta 16 mm and infrarenal aorta 14 mm. There is normal caliber of thoracic and abdominal aorta without evidence of aortic dissection, intram ural hematoma or aneurysm. Visualized supra-aortic arteries are widely patent without a focal stenosi s or aneurysm. The mesenteric, and bilateral renal, iliac and femoral arteries are widely patent with out any focal stenosis or aneurysm. Chest: Pulmonary Arteries: There are no filling defects within main pulmonary arteries. There is normal dim ensional of main PA, measuring 2.4 cm. Lungs: There is no peripheral pulmonary infarction, consolidation, pleural effusion, or right heart s train. Moderate bibasilar fibrosis and chronic appearing scarring in the setting of moderate diffuse bilateral centrilobular emphysematous change. 4.4 x 1.9 cm lateral right lung base pneumatocele. Ther e is no pneumothorax or pneumomediastinum. Aorta: There is normal caliber of thoracic aorta without evidence of aortic dissection, intramural he matoma or aneurysm. Lymph Nodes: There is no significant intrathoracic or axillary lymphadenopathy on CT size criteria. Lower Neck: Visualized portions of the thyroid gland are unremarkable. Mediastinum: Heart size is normal. There is no pericardial effusion. Musculoskeletal: No aggressive focal bony lesions, acute fractures or dislocation. Chest wall: Unremarkable Abdomen and Pelvis: Liver: The liver is normal in size. No focal lesions. Normal hepatic vascular enhancement. Gallbladder and Biliary Tree: Unremarkable Spleen: Unremarkable Pancreas: The pancreas is normal in appearance without focal lesions or abnormal enhancement. Adrenal Glands: Unremarkable Kidneys: Mild bilateral renal atrophy. Kidneys otherwise demonstrate normal symmetric enhancement wit hout focal lesions, calculi or hydronephrosis. Bladder: Unremarkable Bowel: The stomach is grossly normal in appearance. Small bowel and colon are normal in caliber and d istribution. Diverticulosis coli without CT evidence of acute diverticulitis. The appendix is not vis ualized; however, no secondary findings of acute appendicitis identified. Ascites: Absent Lymphadenopathy: No mesenteric, retroperitoneal or periportal lymphadenopathy. Abdominal Wall and Mesentery: Unremarkable. Vasculature: The visualized abdominal aorta is normal in size and caliber. Atherosclerotic vascular c alcifications. Abdominal and pelvic vessels demonstrate normal enhancement. Pelvic Organs: Unremarkable, status post hysterectomy. Musculoskeletal: No aggressive focal bony lesions, acute fractures or dislocation. IMPRESSION: 1. No evidence of acute aneurysm, dissection, or intramural hematoma. Atherosclerotic vascular calcif ications are noted. 2. Moderate bibasilar pulmonary fibrosis and scarring in the setting of moderate diffuse bilateral ce ntrilobular emphysematous change. Lateral right lung base pneumatocele. 3. Mild bilateral renal atrophy. 4. Diverticulosis coli without CT evidence of acute diverticulitis. All CT scans at this medical facility are performed using dose modulation techniques as appropriate t o a performed exam including the following: Automated exposure control was utilized; adjustment of th e MA and/or KV according to patient size; and use of iterative reconstruction technique.
--- NOTE | 2025-03-08 06:35 | ELECTROCARDIOGRAPH REPORT ---
[facility] Test Date: 2025-03-07 Test Time: 20:47:51 Pat Name: GWENDOLYN BEDOLLA Department: 3rd FLOOR PCU Room: [facility] 30[address] A Gender: F [employer] Director: : 1960 Requested By: MUNIR PEREZ Order Number: [id number] Reading MD: Dr. Chetna Conde Measurements Intervals [place] Rate: 84 P: 61 NE: 140 QRS: 31 QRSD: 77 T: 0 QT: 489 QTc: 579 Interpretive Statements Sinus rhythm Low voltage, precordial leads RSR' in V1 or V2, probably normal variant Nonspecific T abnrm, anterolateral leads Prolonged QT interval Electronically Signed On 03-08-2025 7:22:[address] Chetna Conde Please click the below link to view image of tracing.
[2025-03-08] MEDS: cholecalciferol (vitamin D3) 1,000 unit (25mcg) tablet PO SCH (08:12)
[2025-03-08] MEDS ORDERED: albuterol 2.5 MG/3 ML nebule NEB PRN (11:00)
[2025-03-08] MEDS: regadenoson 0.4mg/5ml syringe IV PRN (11:45)
[2025-03-08] MEDS: clonazePAM 0.5mg tablet PO PRN (14:08)
--- NOTE | 2025-03-08 15:11 | ELECTROCARDIOGRAPH REPORT ---
[facility] Test Date: 2025-03-08 Test Time: 15:09:30 Pat Name: GWENDOLYN BEDOLLA Department: [facility] 3S [id number] Room: [place] [id number] A Gender: F Mail Agent: : 1960 Requested By: DEBRA MAURICE Order Number: [id number] Reading MD: Measurements Intervals [place] Rate: 82 P: 53 ME: 148 QRS: 55 QRSD: 100 T: 241 QT: 466 QTc: 545 Interpretive Statements Sinus rhythm Ventricular premature complex Low voltage, precordial leads Nonspecific T abnormalities, lateral leads Prolonged QT interval Please click the below link to view image of tracing.
--- NOTE | 2025-03-08 16:33 | RADIOLOGY REPORT ---
Reason for study/Clinical History: chest pain r/o ACS Comparison Study: NM LOIS SCAN on DOS: 12/08/21 Myocardial Perfusion Study with SPECT Technique: The patient received an intravenous injection of 10.2 mCi of technetium-99m Sestamibi wh ile at rest. After a short delay, SPECT tomographic images of the heart were obtained. The patient then went to the stress lab where they received an intravenous Lexiscan utilizing standard protocol. 32 mCi of technetium-99m Sestamibi was injected intravenously immediately after the start of the i nfusion. Gated SPECT tomographic images of the heart were acquired and processed. Findings: Rotating planar images show no significant attenuation artifact. The left ventricular size is within normal limits. Non reversible defect is present in the inferior wall and apex. The left ventricular ejection fraction is 42 %. (normal greater than 50%) Impression: Non reversible defect is present in the inferior wall and apex. This may represent artifact versus ch ronic infarct. No reversible findings to suggest acute ischemia.
[2025-03-08] MEDS: morphine ER 30mg tablet PO SCH (16:48)
[2025-03-08] MEDS: pantoprazole 40mg Tablet.DR PO SCH (16:48)
[2025-03-08] MEDS: lisinopril 20mg tablet PO ONE (19:40)
[2025-03-08] MEDS: carVEDilol 12.5mg tablet PO ONE (19:40)
--- NOTE | 2025-03-08 20:01 | PROGRESS NOTE ---
Daily Progress Note Providers to CC ~ Antibiotic Timeout Antibiotic Ordered?: No Subjective Patient was seen in her room she was mainly concerned about the pain over her neck and left side of the body. she desperately wanted to eat even though stress testing results were pending . Fortunately stress testing results was unremarkable showed no signs of ischemia echocardiogram showed ejection fraction 45% which I discussed with her patient is started on heart healthy diet and we will continue with pain medications for now Objective Vital Signs Date Time Temp Pulse Resp B/P (MAP) Pulse Ox O2 Delivery O2 Flow Rate FiO2 03/08/25 19:37 19 03/08/25 15:00 97.0 82 114/72 (86) 96 Nasal Cannula 2.0 Result Diagram: 03/08/25 0215 03/08/25 021 General-patient not in any acute distress, alert awake oriented, obese, chronically ill-appearing HEENT-atraumatic normocephalic, neck supple without elevated JVD, no thyromegaly or carotid bruit. No lymphadenopathy bilaterally. Eyes-no icterus or pallor seen in eyes Chest-clear to auscultation bilaterally, breathing nonlabored no tachypnea, no wheezing, no crepitation, no crackles. Heart-S1-S2 normal, regular heart rate no murmur Abdomen bowel sounds positive on auscultation, soft nondistended nontender no guarding, no rigidity Skin no active skin rash/signs of chronic hyperpigmentation present over lower extremity Neurology-grossly intact, nonfocal alert awake oriented Extremity- no pedal edema able to move all 4 extremities Psychiatry - patient is not confused or agitated cooperated during physical examination Coagulation Studies Laboratory Tests Test 03/08/25 05:09 D-Dimer 1.14 MG/L FEU (0-0.50) H D-Dimer Comment Problem\Assessment\Plan 1. Acute chest pain rule out acute coronary syndrome- reviewed echocardiogram and Lexiscan . Patient is started on heart healthy diet today 2. History of CAD status post CABG: will Continue home medications of aspirin statin 3. Chronic pain syndrome: Chronic neck and back pain Home medications include morphine and [place] 4. Patient is strongly advised to stop tobacco and cannabis and risks explained. 5. Obesity: BMI 32.1 Weight loss recommended in outpatient setting 6. Code status discussed with the patient patient wishes to stay full Patient's current condition is guarded , incoming hospitalist will continue to follow patient in AM . medication reconciliation updated in electronic record system . Patient is possible discharge if clinically stable in a.m. on GDMT medications for congestive heart failure with EF 45% . Date of Service: Mar 08, 2025 Billing Provider: DEBRA MAURICE MD Common Visit Codes: [id number] INP/OBS CARE(HIGH) DEBRA MAURICE MD Mar 08, 2025 20:01
[2025-03-08] MEDS: carVEDilol 12.5mg tablet PO SCH (20:48)
[2025-03-09] VITALS (8 sets, daily range): BP systolic 93–140; BP diastolic 43–80; PULSE 68–88; RESP 13–22; TEMP 96.4–98.6; O2SAT 92–100
[2025-03-09 07:00] LABS: BASOPHILS % (AUTO) 0.5 % (0-1); EOSINOPHILS # (AUTO) 0.2 X10'3 (0-0.9); EOSINOPHILS % (AUTO) 2.9 % (0-6); HEMATOCRIT 31.2 % (35.0-45.0); HEMOGLOBIN 10.4 g/dl (12.0-16.0); LYMPHOCYTES # (AUTO) 2.2 X10'3 (1.1-4.8); LYMPHOCYTES % (AUTO) 40.5 % (21-51); MEAN CORPUSCULAR HEMOGLOBIN 29.1 PG (27.0-31.0); MEAN CORPUSCULAR HGB CONC 33.3 g/dL (33.0-36.5); MEAN CORPUSCULAR VOLUME 87.6 FL (78-98); MEAN PLATELET VOLUME 6.5 FL (7.4-10.4); MONOCYTES # (AUTO) 0.4 X10'3 (0-0.9); MONOCYTES % (AUTO) 8.3 % (2-12); NEUTROPHILS # (AUTO) 2.6 X10'3 (1.8-7.7); NEUTROPHILS % (AUTO) 47.8 % (42-75); PLATELET COUNT 246 X10'3 (140-440); RED BLOOD COUNT 3.56 X10'6 (4.20-5.60); RED CELL DISTRIBUTION WIDTH 14.9 % (11.5-14.5); WHITE BLOOD COUNT 5.4 X10'3 (4.5-11.0)
[2025-03-09 07:18] LABS: ALANINE AMINOTRANSFERASE 12 U/L (12-78); ALBUMIN 2.6 G/DL (3.4-5.0); ALBUMIN/GLOBULIN RATIO 0.8 (1.1-1.5); ALKALINE PHOSPHATASE 60 IU/L (46-116); ANION GAP 3 (8-16); ASPARTATE AMINO TRANSFERASE 11 U/L (10-37); BILIRUBIN,TOTAL 0.2 MG/DL (0.1-1.0); BLOOD UREA NITROGEN 7 MG/DL (7-18); BUN/CREATININE RATIO 9.2 (10.0-20.0); CALCIUM 8.4 MG/DL (8.5-10.1); CHLORIDE 103 MMOL/L (99-107); CREATININE 0.76 MG/DL (0.40-0.90); GLUCOSE 123 MG/DL (70-104); POTASSIUM 3.9 MMOL/L (3.5-5.1); SODIUM 138 MMOL/L (135-145); TOTAL CARBON DIOXIDE 31.6 MMOL/L (24-32); TOTAL PROTEIN 5.7 G/DL (6.4-8.2); eCRCL 72 ML/MIN; eGFR 77 ML/MIN
--- NOTE | 2025-03-09 18:43 | CARDIOLOGY REPORT ---
APPROVED REPORT EXAM: Comprehensive 2D, Doppler, and color-flow Echocardiogram. Patient Location: ED3 Blood Pressure: 135/94 mmHg Heart Rate: 86 bpm Rhythm: NSR Indications Chest Pain CAD Hypertension COPD Hx Meth CABG x 3 in 2012 Pro BNP 176 Senior [employer] Developer is Analisa Conde MD. Previous echo 12/08/21 [facility] 50% EF 2D Dimensions LA Diam4.5 cm IVSd 1.3 (0.7-1.1cm) LVDd 5.6 cm PWd 1.0 (0.7-1.1cm) IVSs 1.6 (0.8-1.2cm) LVDs 4.0 (2.5-4.0cm) Aortic Root(2D) 3.0 cm PWs 1.1 (0.8-1.2cm) LVOT Diameter 2.04 (1.8-2.4cm) LVEF(%) 53.3 (>50%) Ao Asc Diam.3.19 cmIVC 17.82 mm FS (%) 27.8 % SV 80.8 ml CO 7.3 L/min M-Mode Dimensions MV EPSS 1.8 (<0.5cm) Aortic Valve AoV Peak Shayan. 115.3 cm/s AoV VTI 24.1 cm AO Peak GR. 5.3 mmHg AO Mean GR. 3 mmHg LVOT VTI 19.41 cm LVOT Peak Shayan. 94.8 cm/s KIRAN(VTI)/BSA 2.63 cm2/m2 KIRAN (VTI) 2.63 cm2 Mitral Valve MV E Velocity 62.3 cm/s MV Peak Gr. 1 mmHg MV DECEL TIME 132 ms MV A Velocity 109.5 cm/s MV PHT 44 ms E/A Ratio 0.6 MVA (PHT) 5.00 cm2 MV VMax59.5 cm/s TDI Medial E' P. V 7.27 cm/s E/Medial E' 8.6 Tricuspid Valve RAP ESTIMATE 10 mmHg Pulmonary Vein S1 Velocity 49.8 cm/s D2 Velocity 39.9 cm/s PVa Wcmzjqnv93.4 cm/s PVa [id number] msec LEFT VENTRICLE LV is upper limit normal in size with mild septal hypertrophy. Overall systolic function appears mild ly reduced with multi segmental wall motion abnormalities noted. LVEF is 45%. RIGHT VENTRICLE RV appears mildly dilated with normal contractility. ATRIA Left atrium is mildly dilated. AORTIC VALVE Trileaflet AV appears sclerotic without stenosis. Mild insufficiency. MITRAL VALVE MV is thickened with mild annular calcification and no stenosis. Trace to mild mitral regurgitation. TRICUSPID VALVE The tricuspid valve is normal in structure. Trace tricuspid regurgitation. PULMONIC VALVE The pulmonary valve is normal in structure. Trace pulmonic regurgitation. GREAT VESSELS The aortic root is normal in size. The ascending aorta is normal in size. The IVC is normal in size a nd collapses >50% with inspiration. PERICARDIUM There is no pericardial effusion, epicardial pad present. Other Information Study Quality: Adequate Conclusion LV is upper limit normal in size with mild septal hypertrophy. Overall systolic function appears mild ly reduced with multi segmental wall motion abnormalities noted. LVEF is 45%. RV appears mildly dilated with normal contractility. Left atrium is mildly dilated. Trileaflet AV appears sclerotic without stenosis. Mild insufficiency. MV is thickened with mild annular calcification and no stenosis. Trace to mild mitral regurgitation. The tricuspid valve is normal in structure. Trace tricuspid regurgitation. The pulmonary valve is normal in structure. Trace pulmonic regurgitation. There is no pericardial effusion, epicardial pad present.
--- NOTE | 2025-03-09 20:11 | PROGRESS NOTE ---
Daily Progress Note Providers to CC ~ Antibiotic Timeout Antibiotic Ordered?: No Subjective The patient continues to experience chest pain that is intermittent her stress test was negative her chest pain is similar to what she experienced when she had her prior AL and had a CABG. The patient's blood pressure was very labile yesterday times the patient is blood pressure was in the 90s over 60s in the other times is in the 200s however today her blood pressure is low to normal range. Objective Vital Signs Date Time Temp Pulse Resp B/P (MAP) Pulse Ox O2 Delivery O2 Flow Rate FiO2 03/09/25 18:50 14 03/09/25 15:00 98.3 68 122/62 (82) 92 Nasal Cannula 2.0 Result Diagram: 03/09/25 0554 03/09/25 0554 Gen. No acute distress alert and oriented 4 Lungs clear to ascultation bilaterally, no wheezes rales or rhonchi appreciated Heart normal sinus rhythm no murmurs rubs or clicks noted Abdomen soft nontender bowel sounds are normoactive Lower extremities no clubbing cyanosis, nor edema appreciated bilaterally Coagulation Studies Laboratory Tests Test 03/08/25 05:09 D-Dimer 1.14 MG/L FEU (0-0.50) H D-Dimer Comment Problem\Assessment\Plan 1. Acute chest pain rule out acute coronary syndrome- reviewed echocardiogram and Lexiscan . Patient is started on heart healthy diet today 03/09 The patient continues to experiencing chest pain- I will reach out to Dr. Conde's team tomorrow 2. History of CAD status post CABG: will Continue home medications of aspirin statin 3. Chronic pain syndrome: Chronic neck and back pain Home medications include morphine and [place] 4. Patient is strongly advised to stop tobacco and cannabis and risks explained. 5. Obesity: BMI 32.1 Weight loss recommended in outpatient setting 6. Code status discussed with the patient patient wishes to stay full Date of Service: Mar 09, 2025 Billing Provider: PATRICK YOUNG DO Common Visit Codes: [id number] INP/OBS CARE(HIGH) PATRICK YOUNG DO Mar 09, 2025 20:11
[2025-03-10 02:00] VITALS: BP 102/57; PULSE 75; RESP 23; TEMP 98.1; O2SAT 93
[2025-03-10 06:11] LABS: BASOPHILS % (AUTO) 0.6 % (0-1); EOSINOPHILS # (AUTO) 0.2 X10'3 (0-0.9); EOSINOPHILS % (AUTO) 2.8 % (0-6); HEMATOCRIT 32.4 % (35.0-45.0); LYMPHOCYTES # (AUTO) 2.2 X10'3 (1.1-4.8); LYMPHOCYTES % (AUTO) 36.1 % (21-51); MEAN CORPUSCULAR HEMOGLOBIN 29.5 PG (27.0-31.0); MEAN CORPUSCULAR HGB CONC 34.1 g/dL (33.0-36.5); MEAN CORPUSCULAR VOLUME 86.6 FL (78-98); MEAN PLATELET VOLUME 6.6 FL (7.4-10.4); MONOCYTES # (AUTO) 0.6 X10'3 (0-0.9); MONOCYTES % (AUTO) 9.8 % (2-12); NEUTROPHILS # (AUTO) 3.1 X10'3 (1.8-7.7); NEUTROPHILS % (AUTO) 50.7 % (42-75); PLATELET COUNT 243 X10'3 (140-440); RED BLOOD COUNT 3.74 X10'6 (4.20-5.60); RED CELL DISTRIBUTION WIDTH 14.8 % (11.5-14.5); WHITE BLOOD COUNT 6.1 X10'3 (4.5-11.0)
[2025-03-10 06:32] LABS: ALANINE AMINOTRANSFERASE 12 U/L (12-78); ALBUMIN 2.9 G/DL (3.4-5.0); ALBUMIN/GLOBULIN RATIO 0.9 (1.1-1.5); ALKALINE PHOSPHATASE 64 IU/L (46-116); ANION GAP 4 (8-16); ASPARTATE AMINO TRANSFERASE 10 U/L (10-37); BILIRUBIN,TOTAL 0.3 MG/DL (0.1-1.0); BLOOD UREA NITROGEN 8 MG/DL (7-18); BUN/CREATININE RATIO 10.1 (10.0-20.0); CALCIUM 8.7 MG/DL (8.5-10.1); CHLORIDE 100 MMOL/L (99-107); CREATININE 0.79 MG/DL (0.40-0.90); GLUCOSE 125 MG/DL (70-104); POTASSIUM 3.9 MMOL/L (3.5-5.1); SODIUM 138 MMOL/L (135-145); TOTAL PROTEIN 6.3 G/DL (6.4-8.2); eCRCL 69 ML/MIN; eGFR 74 ML/MIN
[2025-03-10 07:00] VITALS: BP 109/55; PULSE 73; RESP 16; TEMP 97.9; O2SAT 96
[2025-03-10 08:00] VITALS: RESP 22; O2SAT 97
[2025-03-10 11:00] VITALS: BP 114/63; PULSE 81; RESP 16; TEMP 98.4; O2SAT 94
[2025-03-10] MEDS: HYDROcodone/acetaminophen 5mg/325mg tablet PO PRN (11:57)
[2025-03-10 15:00] VITALS: BP 108/57; PULSE 75; RESP 16; TEMP 98.4; O2SAT 94
--- NOTE | 2025-03-10 15:51 | CONSULTATION REPORT ---
History of Present Illness Providers to CC CC: CAROLINA CONDE MD ~ Reason for Admit\Admit Dx: Cardiology consultation Refering MD: BLESSING Little History of Present Illness This is a 64-year-old female with history of coronary artery disease status post NSTEMI in 2011 resulting in a three-vessel CABG (SVG-LAD, SVG-OM, SVG, PDA). known occlusion of the Svg to PDA but wihtou significat [place] RCA disease. She has history of dilated cardiomyopathy likely multifactorial with history of alcohol and meth use as well as an ischemic disease. History of an LVEF of 30- 35%. Other history includes current tobacco use, COPD, emphysema. She uses oxygen at night. History of chronic anxiety, postop AFib, hepatitis C. Patient states here for left-sided chest pain which radiates to the left arm, jaw and back with associated diaphoresis, nausea. She reports having increasing episodes over the past two weeks. Did not report that this has been ongoing for years however did note similar complaints in 2022. Also states this is similar to when she had her open heart surgery and that she had had a normal stress test at that time. Records review indicates that she came in with a NSTEMI and went straight to the cardiac catheterization lab however. Furthermore, states blood pressure fluctuates in his intermittently high and low. Echocardiogram was completed that shows an LVEF of 45% currently with wall motion abnormalities. There is a fixed inferior wall and apical defect on her stress test with no reversible ischemia. High sensitivity troponins were essentially normal and her EKG is without acute abnormalities. Allergies: Coded Allergies: egg (Verified Allergy, Severe, ANAPHYLAXIS, THROAT CLOSES, 03/07/25) venlafaxine (Verified Allergy, Intermediate, RASH, 03/07/25) Penicillins (Verified Allergy, Mild, RASH AND OR N/V, PT CANT REMEMBER WHICH, 03/07/25) erythromycin base (Verified Allergy, Mild, RASH AND/OR N/V PATIENT DOESN'T REMEMBER WHICH, 03/07/25) levofloxacin (Verified Allergy, Unknown, PATIENT CANT REMEMBER, 03/07/25) baclofen (Verified Adverse Reaction, Severe, SEVERE VOMITING, 03/07/25) risperidone (Verified Adverse Reaction, Intermediate, SEVERE N/V, 12/08/21) tramadol (Verified Adverse Reaction, Mild, N/V, 12/08/21) Home Medications Home Medications Active Ondansetron Odt (Ondansetron HCl) 4 Mg Tab.rapdis 1 Tablet PO Q6H PRN Habitrol 21 MG Patch* (Nicotine) 1 Each Patch.td24 1 Patch TD DAILY Reported Amitriptyline Hcl 25 Mg Tablet 1 Tab PO HS Quetiapine Fumarate 50 Mg Tablet 1 Tab PO HS Carvedilol 12.5 Mg Tablet 1 Tab PO BID Lidocaine 1 Each Adh..patch 1 Patch TOP DAILY PRN Stiolto Respimat Inhal [place] (Tiotropium Br/Olodaterol HCl) 4 Gm Mist.inhal 2 Puffs INH DAILY Zanaflex (Tizanidine Hcl) 4 Mg Tablet 1 Tab PO TID PRN Promethazine HCl 25 Mg Tablet 1 Tab PO Q8H PRN 5 Days MIRAPEX tablet (Pramipexole Di-Hcl) 0.25 Mg Tablet 0.25 Mg PO HS Vitamin D3 (Cholecalciferol (Vitamin D3)) 50 Mcg Capsule 1 Cap PO DAILY 30 Days Atorvastatin Calcium 40 Mg Tablet 1 Tablet PO HS Clonazepam 0.5 Mg Tab.rapdis 1 Tab PO BID PRN MDD 2 Tablet(s) 30 Days PROTONIX tablet (Pantoprazole Sodium) 40 Mg Tablet.dr 1 Tab PO QDD 30 Days Oramorph Sr (Morphine Sulfate) 30 Mg Tablet.sa 30 Mg PO BID@0600,1600 Nitrostat SL* (Nitroglycerin) 0.4 Mg Tablet 1 Tab SL Q5MIN PRN Ventolin Hfa (Albuterol Sulfate) 18 Gm Hfa.aer.ad 2 Puffs PO Q4HPRN Aspir-Low (Aspirin) 81 Mg Tablet.dr 1 Tab PO DAILY Hydrocodon-Acetaminophn 10-325 tablet (Acetaminophen/Hydrocodone Bitart) 1 Each Tablet 1 Tab PO TID PRN Past Medical History Medical History Comment Coronary artery disease with history of CABG in 2011. Last angiogram completed October 31, 2022 with luminal irregularities, patent SVG to OM and patent SVG to LAD with known occlusion of the SVG to PDA with no significant [place] RCA disease. Hepatitis-C Emphysema/COPD on home oxygen Sciatica Hyperlipidemia Prediabetes Tobacco use disorder Anxiety Cardiomyopathy Past Surgical History Surgical History Comment CABG x3 SVG to OM, SVG to PDA, SVG to LAD Appendectomy Hysterectomy Cervical spine surgery Orthopedic Past Family History Family History: Alzheimer's disease GRANDFATHER OR GRANDMOTHER (GRANDMOTHER (MOMS MOM)), , Age: 60 years and older Asbestos FATHER, Name: MARLENE BEDOLLA, , Age: 60 years and older ETOH GRANDFATHER OR GRANDMOTHER (GRANDPA (MOMS DAD)), , Age: 60 years and older GRANDFATHER OR GRANDMOTHER, Name: GRANDMA (GRANDMA (DADS MOM)), , Age: 60 years and older FAMILY/OTHER, Name: ALEJANDRA, , Age: 56 Endometriosis CHILD, Name: AMA RICHY, Age: 34 FH: back pain FAMILY/OTHER, Name: DANIEL, Age: 50 FH: breast cancer MOTHER, Name: SLAVA CAREY, , Age: 83 FH: cancer FAMILY/OTHER, Name: MARLENE, , Age: 50 FH: epilepsy FAMILY/OTHER, Name: SEN, Age: 62 FH: lung cancer MOTHER, Name: SLAVA CAREY, , Age: 83 FH: lymphoma FAMILY/OTHER, Name: SOCORRO, Age: 47 FH: polycystic ovary CHILD, Name: AMA LOCKHART, Age: 34 FH: skin cancer FAMILY/OTHER, Name: GLORIA, Age: 45 FAMILY/OTHER, Name: CLARY, Age: 60 FH: spina bifida FAMILY/OTHER, Name: MARLENE, , Age: Hepatitis A FAMILY/OTHER, Name: MASON, , Age: 29 Hepatitis B FAMILY/OTHER, Name: MASON, , Age: 29 Hepatitis C FAMILY/OTHER, Name: MASON, , Age: 29 Past Social History Social History Comment Current everyday smoker. She reports she is down from two packs a day to 1/2 pack per day. No alcohol or drug use currently. Reports last methamphetamine use was 40 years ago as well as her last alcohol use 40 years ago. Physical Exam Last Vital Signs Recorded: RN Vital Signs have been reviewed: Yes, Temperature: 98.1, Source: Oral, Heart Rate: 75, Respiratory Rate: 20, BP: 102/57, Pulse Oximetry: 93, Weight: 88.640 Physical Exam General: Awake, alert, oriented. No apparent distress Neck: Supple. Normal range of motion. No JVD Respiratory: Lungs are clear to auscultation bilaterally. No respiratory distress. Chest: Normal shape and size. No accessory muscle use. Cardiovascular: Regular rate and rhythm. S1-S2. No murmur, gallop, rub. Gastrointestinal: Abdomen is soft. Nontender to palpation. Bowel sounds present. Extremities: No lower extremity edema, cyanosis or clubbing. Neurologic: Alert and oriented x4. Nonfocal Psychiatric: Normal mood and affect. Skin: Normal color. Warm and dry. Review of Systems ROS Patient complains of chest pain with associated arm pain, jaw pain, back pain, diaphoresis and nausea as noted in HPI. Otherwise, review of systems negative except specifically documented in HPI. Results Echocardiogram Echocardiogram Conclusion LV is upper limit normal in size with mild septal hypertrophy. Overall systolic function appears mildly reduced with multi segmental wall motion abnormalities noted. LVEF is 45%. RV appears mildly dilated with normal contractility. Left atrium is mildly dilated. Trileaflet AV appears sclerotic without stenosis. Mild insufficiency. MV is thickened with mild annular calcification and no stenosis. Trace to mild mitral regurgitation. The tricuspid valve is normal in structure. Trace tricuspid regurgitation. The pulmonary valve is normal in structure. Trace pulmonic regurgitation. There is no pericardial effusion, epicardial pad present. Dictated by:YOSELIN WILSON MD Dictation date and time:03/09/25 184 Cardiac Stress Test Cardiac Stress Test Ordering Physician: DEBRA MAURICE MD Exam: NM LOIS SCAN Reason for study/Clinical History: chest pain r/o ACS Comparison Study: NM LOIS SCAN on DOS: 12/08/21 Myocardial Perfusion Study with SPECT Technique: The patient received an intravenous injection of 10.2 mCi of technetium-99m Sestamibi while at rest. After a short delay, SPECT tomographic images of the heart were obtained. The patient then went to the stress lab where they received an intravenous Lexiscan utilizing standard protocol. 32 mCi of technetium-99m Sestamibi was injected intravenously immediately after the start of the infusion. Gated SPECT tomographic images of the heart were acquired and processed. Findings: Rotating planar images show no significant attenuation artifact. The left ventricular size is within normal limits. Non reversible defect is present in the inferior wall and apex. The left ventricular ejection fraction is 42 %. (normal greater than 50%) Impression: Non reversible defect is present in the inferior wall and apex. This may represent artifact versus chronic infarct. No reversible findings to suggest acute ischemia. Electronically Signed by:JESUS CHINCHILLA MD Date & Time: 03/08/25 1630 Other Other Ordering Physician: MUNIR PEREZ Exam: CTA AORTA DISECTION History: chest pain-non anginal Comparison: None TECHNIQUE: Using a slice CT scanner volumetric data acquisition of chest, abdomen and pelvis was obtained following intravenous administration of intravenous 100 ml contrast without any reported adverse effects. Axial images were reconstructed and additional sagittal and coronal images were reformatted. 3D/MIP images were performed and reviewed for reporting. Radiation Dose Information: CT Dose: CTDI volume is 25 mGy. Dose-length product is 2017.26 mGy*cm Findings: Vascular: Aortic measurements: Annulus 33 mm, ascending aorta 30 mm (coronal plane), aortic arch 20 mm sagittal plane, descending aorta 21 mm, aortic hiatus 17 mm, suprarenal abdominal aorta 16 mm and infrarenal aorta 14 mm. There is normal caliber of thoracic and abdominal aorta without evidence of aortic dissection, intramural hematoma or aneurysm. Visualized supra-aortic arteries are widely patent without a focal stenosis or aneurysm. The mesenteric, and bilateral renal, iliac and femoral arteries are widely patent without any focal stenosis or aneurysm. Chest: Pulmonary Arteries: There are no filling defects within main pulmonary arteries. There is normal dimensional of main PA, measuring 2.4 cm. Lungs: There is no peripheral pulmonary infarction, consolidation, pleural effusion, or right heart strain. Moderate bibasilar fibrosis and chronic appearing scarring in the setting of moderate diffuse bilateral centrilobular emphysematous change. 4.4 x 1.9 cm lateral right lung base pneumatocele. There is no pneumothorax or pneumomediastinum. Aorta: There is normal caliber of thoracic aorta without evidence of aortic dissection, intramural hematoma or aneurysm. Lymph Nodes: There is no significant intrathoracic or axillary lymphadenopathy on CT size criteria. Lower Neck: Visualized portions of the thyroid gland are unremarkable. Mediastinum: Heart size is normal. There is no pericardial effusion. Musculoskeletal: No aggressive focal bony lesions, acute fractures or dislocation. Chest wall: Unremarkable Abdomen and Pelvis: Liver: The liver is normal in size. No focal lesions. Normal hepatic vascular enhancement. Gallbladder and Biliary Tree: Unremarkable Spleen: Unremarkable Pancreas: The pancreas is normal in appearance without focal lesions or abnormal enhancement. Adrenal Glands: Unremarkable Kidneys: Mild bilateral renal atrophy. Kidneys otherwise demonstrate normal symmetric enhancement without focal lesions, calculi or hydronephrosis. Bladder: Unremarkable Bowel: The stomach is grossly normal in appearance. Small bowel and colon are normal in caliber and distribution. Diverticulosis coli without CT evidence of acute diverticulitis. The appendix is not visualized; however, no secondary findings of acute appendicitis identified. Ascites: Absent Lymphadenopathy: No mesenteric, retroperitoneal or periportal lymphadenopathy. Abdominal Wall and Mesentery: Unremarkable. Vasculature: The visualized abdominal aorta is normal in size and caliber. Atherosclerotic vascular calcifications. Abdominal and pelvic vessels demonstrate normal enhancement. Pelvic Organs: Unremarkable, status post hysterectomy. Musculoskeletal: No aggressive focal bony lesions, acute fractures or dislocation. IMPRESSION: 1. No evidence of acute aneurysm, dissection, or intramural hematoma. Atherosclerotic vascular calcifications are noted. 2. Moderate bibasilar pulmonary fibrosis and scarring in the setting of moderate diffuse bilateral centrilobular emphysematous change. Lateral right lung base pneumatocele. 3. Mild bilateral renal atrophy. 4. Diverticulosis coli without CT evidence of acute diverticulitis. All CT scans at this medical facility are performed using dose modulation techniques as appropriate to a performed exam including the following: Automated exposure control was utilized; adjustment of the MA and/or KV according to patient size; and use of iterative reconstruction technique. Electronically Signed by:JUDI BARNES MD Date & Time: 03/08/25530 Diagram Lab Result Diagram: 03/10/2552803/10/25528 Assessment/Plan Additional Plan This is a 64-year-old female who presented secondary to chest pain. The following is her problem list: Angina Patient with history of persistent angina She had further evaluation with angiogram October 2022 with no significant obstructive disease. Suspect non-cardiac etiology. Recommend medical management --continue carvedilol --start Imdur --aspirin 81 mg daily --high intensity statin to keep LDL less than 55. History of coronary artery disease History of CABG --management as above Heart failure with mid-range ejection fraction LVEF 45% History of dilated cardiomyopathy with previous LVEF down to 35%. recommend medical management --continue carvedilol --consider OLGA inhibitor --Imdur as above Tobacco use disorder --patient highly encouraged to quit COPD on home oxygen --management per hospitalist Discussed with Dr. Mireille Conde who is in agreement with the above. Supervising MD Supervising Physician: AVA Ly NP Mar 10, 2025 15:51
[2025-03-10 16:00] VITALS: RESP 16
[2025-03-10] MEDS: isosorbide mononitrate 30mg tab.SR.24H PO SCH (16:00)
--- NOTE | 2025-03-10 19:09 | DISCHARGE SUMMARY ---
Discharge Summary Providers to CC ~ Discharge Summary Admission Diagnosis: chest pain r/o ACS , chronic pain syndrome Hospital Course DATE OF ADMISSION: 03/07/2025 DATE OF DISCHARGE: 03/10/2025 Discharge Diagnosis\\Comment: Acute chest pain RI ruled out Costochondritis Chronic pain syndrome Tobacco use disorder Operations\\Procedures: None Consultants: Gse Mechanic Dr. Erich Kapoor Complications: None Condition on DC: Stable Continued Medications: Albuterol Sulfate (Ventolin Hfa) 18 Gm Hfa.aer.ad 2 PUFFS PO Q4HPRN Amitriptyline Hcl (Amitriptyline Hcl) 25 Mg Tablet 1 TAB PO HS Aspirin (Aspir-Low) 81 Mg Tablet.dr 1 TAB PO DAILY Atorvastatin Calcium (Atorvastatin Calcium) 40 Mg Tablet 1 TABLET PO HS, #30 TABLET 5 Refills Carvedilol (Carvedilol) 12.5 Mg Tablet 1 TAB PO BID Cholecalciferol (Vitamin D3) (Vitamin D3) 50 Mcg Capsule 1 CAP PO DAILY for 30 Days, #30 CAP 0 Refills Clonazepam (Clonazepam) 0.5 Mg Tab.rapdis 1 TAB PO BID PRN for anxiety MDD 2 Tablet(s) for 30 Days, #60 TAB 0 Refills Hydrocodone Bit/Acetaminophen (Hydrocodon-Acetaminophn 10-325 tablet) 1 Each Tablet 1 TAB PO TID PRN for pain Lidocaine (Lidocaine) 1 Each Adh..patch 1 PATCH TOP DAILY PRN for LOW BACK PAIN Morphine Sulfate (Oramorph Sr) 30 Mg Tablet.sa 30 MG PO BID@0600,1600 Nicotine 21 MG Patch* (Habitrol 21 MG Patch*) 1 Each Patch.td24 1 PATCH TD DAILY, #14 PATCH Nitroglycerin SL* (Nitrostat SL*) 0.4 Mg Tablet 1 TAB SL Q5MIN PRN for Chest pain Q5min PRNx3-call MD, #25 TAB ONDANSETRON ODT 4mg tablet (Ondansetron Odt) 4 Mg Tab.rapdis 1 TABLET PO Q6H PRN for NAUSEA, #20 TABLET Pantoprazole Sodium (PROTONIX tablet) 40 Mg Tablet.dr 1 TAB PO QDD for 30 Days, #30 TAB Pramipexole Di-Hcl (MIRAPEX tablet) 0.25 Mg Tablet 0.25 MG PO HS, TAB Promethazine HCl (Promethazine HCl) 25 Mg Tablet 1 TAB PO Q8H PRN for nausea/vomiting for 5 Days, #20 TAB Quetiapine Fumarate (Quetiapine Fumarate) 50 Mg Tablet 1 TAB PO HS Tiotropium Br/Olodaterol HCl (Stiolto Respimat Inhal [place]) 4 Gm Mist.inhal 2 PUFFS INH DAILY Tizanidine Hcl (Zanaflex) 4 Mg Tablet 1 TAB PO TID PRN for muscle spasms Discharge Summary: The patient was admitted by Dr. Guadalupe Cerrato with the following HPI:"64-year-old female patient with a past medical history of CABG in 2013, multiple colonic polyps and chronic pain syndrome who presented to the hospital with complaints of chest pain since last five days. She mentioned recently she lost her best friend and celebrated event " celebration of life" for her friend. Chest pain is over the middle of the chest it is like pressure sensation she feels it is radiating towards her back she does smoke half pack of cigarettes per day and use cannabis off and on but denied use of any alcohol. Patient has old history of pneumonia. She gets off and on acid reflux symptoms. She does have chronic anxiety issues. She has noticed lot of fluctuation in her blood pressure sometimes it is very high but then immediately comes down to very low levels. She follows in [facility] in [place]. Off and on noticed mild swelling over the ankles bilaterally. Patient does have chronic pain syndrome for which medications are prescribed from [facility] provider. Per patient she was seen by Dr. Kapoor couple of years back." The patient has a echocardiogram that demonstrated an LVEF of 45% and was diagnosed with cardiomyopathy had no signs of fluid overload during hospitalization the patient had a Lexiscan stress test which was negative as well. The patient is chest pain was reproducible upon palpation of the left 5th costal sternal junction and at the 5th segment with a rib articulates with the transverse process of the 5th vertebrae on the left. Patient also had a CTA of the chest which was negative for PE pulmonary embolism. The patient is evaluated by Cardiology as well Dr. Erich kapoor's team- which assessed that the chest pain was not cardiac in nature- Cardiology recommended Imdur however the patient's blood pressure was low and she refused to take this medication. The patient remains on nicotine patch for tobacco use disorder. I recommended that the patient take NSAIDs for her costochondritis she also was considering using a lidocaine patch. Gen. No acute distress alert and oriented 4 Lungs clear to ascultation bilaterally, no wheezes rales or rhonchi appreciated Heart normal sinus rhythm no murmurs rubs or clicks noted Abdomen soft nontender bowel sounds are normoactive Lower extremities no clubbing cyanosis, nor edema appreciated bilaterally The patient felt ready to be discharged and was medically cleared to be disc harged on 03/10/2025 The patient was seen and evaluated on day of discharge. Time spent on discharge 40 minutes *Problems/Diagnosis: (1) Acute chest pain Status: Acute Total Time Spent on D/C: > 30 Minutes Date of Service: Mar 10, 2025 Billing Provider: PATRICK YOUNG DO Common Visit Codes: 57863-LMS/OBS DISCH DAY >30min PATRICK YOUNG DO Mar 10, 2025 19:09
== END 2025-03-10 18:45 | disposition home or self-care (01) | DRG 203 ==
LOC: ER 10:40 → ED HOLD 15:47 → PCU 3S 16:56
PROVIDERS: ADMIT Internal Medicine; ATTEND Internal Medicine
PROC: 4A02XM4 Measurement of Cardiac Total Activity, External Approach (ICD-10-PCS; principal; 2025-03-08)
PROC: 3E033HZ Introduction of Radioactive Substance into Peripheral Vein, Percutaneous Approach (ICD-10-PCS; 2025-03-08)
PROC: B32T1ZZ Computerized Tomography (CT Scan) of Left Pulmonary Artery using Low Osmolar Contrast (ICD-10-PCS; 2025-03-08)
PROC: B3201ZZ Computerized Tomography (CT Scan) of Thoracic Aorta using Low Osmolar Contrast (ICD-10-PCS; 2025-03-08)
PROC: B32S1ZZ Computerized Tomography (CT Scan) of Right Pulmonary Artery using Low Osmolar Contrast (ICD-10-PCS; 2025-03-08)
DX: M94.0 Chondrocostal junction syndrome [Tietze] (principal); I42.0 Dilated cardiomyopathy; G30.9 Alzheimer's disease, unspecified; I48.91 Unspecified atrial fibrillation; B19.20 Unspecified viral hepatitis C without hepatic coma; G43.909 Migraine, unspecified, not intractable, without status migrainosus; E66.9 Obesity, unspecified; F02.83 Dementia in other diseases classified elsewhere, unspecified severity, with mood disturbance; I50.20 Unspecified systolic (congestive) heart failure; I25.10 Atherosclerotic heart disease of native coronary artery without angina pectoris; E78.00 Pure hypercholesterolemia, unspecified; F02.84 Dementia in other diseases classified elsewhere, unspecified severity, with anxiety; G89.29 Other chronic pain; M54.2 Cervicalgia; F17.210 Nicotine dependence, cigarettes, uncomplicated; F17.200 Nicotine dependence, unspecified, uncomplicated; J43.9 Emphysema, unspecified; I11.0 Hypertensive heart disease with heart failure; K21.9 Gastro-esophageal reflux disease without esophagitis; Z79.82 Long term (current) use of aspirin; I25.2 Old myocardial infarction; Z80.1 Family history of malignant neoplasm of trachea, bronchus and lung; Z80.3 Family history of malignant neoplasm of breast; Z80.7 Family history of other malignant neoplasms of lymphoid, hematopoietic and related tissues; Z80.8 Family history of malignant neoplasm of other organs or systems; Z82.0 Family history of epilepsy and other diseases of the nervous system; Z86.0100 Personal history of colon polyps, unspecified; Z87.01 Personal history of pneumonia (recurrent); Z88.0 Allergy status to penicillin; Z88.1 Allergy status to other antibiotic agents; Z90.710 Acquired absence of both cervix and uterus; Z99.81 Dependence on supplemental oxygen; Z56.0 Unemployment, unspecified; Z95.1 Presence of aortocoronary bypass graft; Z68.32 Body mass index [BMI] 32.0-32.9, adult
CPT/HCPCS: 36415; 71045; 71275; 74174; 78452; 80048; 80053; 80305; 83605; 83880; 84484; 85025; 85379; 87081; 93005; 93017; 93306; 99285; A4615; A6258; A9500; G0378; J1171; J1644; J2270; J2405; J2785; J7030; Q9967